=== PATIENT | female | born 1970 | race Caucasian/White ===

== ENCOUNTER → 2020-11-21 14:30 | Outpatient (BNVA) | payer OTHER, SELFPAY | PROVIDERS: PCP Nurse Practitioner Family; Visit Provider Urology | DX: N20.0 Calculus of kidney (principal); N39.0 Urinary tract infection, site not specified; M54.9 Dorsalgia, unspecified | CPT/HCPCS: 81002 ==

== ENCOUNTER → 2020-11-28 14:47 | Outpatient (BNVA) | payer OTHER, SELFPAY | PROVIDERS: PCP Nurse Practitioner Family; Visit Provider Urology ==

== ENCOUNTER 2021-02-15 10:33 | Outpatient (REF) | payer OTHER, SELFPAY ==
[2021-02-15 14:44] LABS: Glucose Urine UA NEG (NEG); Leukocyte Esterase Urine 3+ (NEG); Nitrite Urine POS (NEG); Specific Gravity - Urine <= 1.005 (1.005-1.025); Urine Blood 3+ (NEG); Urine Ketones NEG (NEG); Urine Protein TRACE MG/DL (NEG-TRACE)
[2021-02-15 14:48] LABS: Appearance Urine HAZY; Color Urine YELLOW
[2021-02-15 15:24] LABS: Bacteria Urine 2+ /LPF; WBC Urine TNTC /HPF (0-4)
== END 2021-02-15 10:34 | disposition home or self-care (01) ==
LOC: HO.10HDL 10:33
PROVIDERS: Absent Provider Internal Medicine Hypertension Specialist; Visit Provider Urology
DX: N39.0 Urinary tract infection, site not specified (principal); N20.0 Calculus of kidney
CPT/HCPCS: 81001; 87086; 87088; 87186

== ENCOUNTER → 2021-05-23 10:05 | Outpatient (BNVA) | payer OTHER, SELFPAY | PROVIDERS: Visit Provider Internal Medicine Cardiovascular Disease | DX: R07.89 Other chest pain (principal); R00.2 Palpitations; G47.10 Hypersomnia, unspecified; I10 Essential (primary) hypertension | CPT/HCPCS: 93005 ==

== ENCOUNTER → 2021-06-11 11:08 | Outpatient (REF) | payer OTHER, SELFPAY ==
--- NOTE | 2021-06-11 11:11 | HM_ITS ---
TEST PERFORMED: Cardiac event monitoring. INDICATION: Palpitations. REQUESTING PHYSICIAN: César Wilson MD. ENROLLMENT PERIOD: 06/11/2021 to 07/11/2021-30 days. FINDINGS: In the above monitoring period, the underlying rhythm was sinus. The rates were on the tachycardic side, beat being 103 beats per minute to 129 beats per minute. However, there were no other arrhythmias noted during this time. There were no specific patient symptoms as well. CONCLUSION: Study shows sinus tachycardia during the entire monitoring but no other arrhythmias. Mg Dominguez MD HS/MODL / [id number]
== END ==
LOC: HO.CARD 11:08
PROVIDERS: Visit Provider Internal Medicine Cardiovascular Disease
DX: R00.2 Palpitations (principal)
CPT/HCPCS: 93270

== ENCOUNTER → 2021-07-03 11:04 | Outpatient (REF) | payer OTHER, SELFPAY ==
--- NOTE | 2021-07-03 11:14 | CA_ITS ---
Acquisition Time: 2021-07-03 11:09:05 Total Exercise Time: 00:05:01 Test Indications: CP,SOB Medications: SEE CHART Protocol: ROSEANNA Max HR: 181 BPM 107% of Pred: 168 BPM Max BP: 164/070 mmHG Max Work Load: 7.0 METS Exercise stress test with exercise 5 min 1 sec of roseanna protocol, with moderate shortness of breath, 4-5/10 chest tightness at baseline which did not change with exercise or in recovery, with rare isolated PVC, with normotensive response to exercise, without EKG changes meeting criteria for ischemia. Echo images obtained at rest and immediately post peak exercise. Definity contrast used. Test reviewed with Dr Wilson Referred By: César Wilson Overread By: NICOLETTE BOSS
== END ==
LOC: HO.CARD 11:04
PROVIDERS: Visit Provider Internal Medicine Cardiovascular Disease
DX: R07.89 Other chest pain (principal)
CPT/HCPCS: 93350

== ENCOUNTER 2022-10-08 15:25 | Outpatient (REF) | payer OTHER, SELFPAY ==
--- NOTE | ~2022-10-08 | XR_ITS ---
EXAMINATION: XR SINUSES CLINICAL INFORMATION: Sinusitis COMPARISON: None TECHNIQUE: 3 views of the sinuses were obtained. FINDINGS: Mild mucoperiosteal thickening left maxillary sinus. There may be minimal mucoperiosteal thickening left frontal sinus. Nasal septum midline. The right frontal and maxillary sinuses appear clear. Orbital rims intact. XR/XR sinus min 3V IMPRESSION: Mild areas of mucoperiosteal thickening noted.
== END 2022-10-08 15:26 | disposition home or self-care (01) ==
LOC: HO.XRAY 15:25
PROVIDERS: PCP Physician Assistant Medical; Visit Provider Otolaryngology
DX: J32.9 Chronic sinusitis, unspecified (principal)
CPT/HCPCS: 70220

== ENCOUNTER 2023-08-22 11:41 | Outpatient (REF) | payer OTHER, SELFPAY | END 2023-08-22 11:42 | disposition home or self-care (01) | LOC: HO.MAMMO 11:41 | PROVIDERS: Visit Provider Physician Assistant Medical | DX: Z12.31 Encounter for screening mammogram for malignant neoplasm of breast (principal) | CPT/HCPCS: 77063; 77067 ==

== ENCOUNTER → 2023-08-22 11:45 | Outpatient (BNV) | payer OTHER, SELFPAY | PROVIDERS: Visit Provider Radiology Diagnostic Radiology | DX: Z12.31 Encounter for screening mammogram for malignant neoplasm of breast (principal) | CPT/HCPCS: 77063; 77067 ==

== ENCOUNTER 2024-08-24 16:11 | Outpatient (REF) | payer OTHER, SELFPAY ==
--- NOTE | ~2024-08-24 | MM_ITS ---
EXAMINATION: MM SCREENING DIGITAL BREAST TOMOSYNTHESIS, BILATERAL CLINICAL INFORMATION: Screening. Asymptomatic. COMPARISON: Mammography: Comparison is made with available priors TECHNIQUE: Digital breast mammography with tomosynthesis is performed in both the craniocaudal and mediolateral oblique views along with computer-aided detection (CAD). FINDINGS: There are scattered areas of fibroglandular density (ACR BI-RADS breast composition Category b). There are no significant masses, abnormal calcifications, or other abnormalities. MM/MM tomosynthesis screening BI IMPRESSION: No mammographic evidence of malignancy. ASSESSMENT: BI-RADS BI-RADS 1 - Negative RECOMMENDATION: Routine annual mammography screening. 1 year F/U This examination should not preclude the clinical evaluation of a suspicious palpable abnormality. This patient's information was entered into a reminder system with a target due date for their next mammogram. Electronically signed by: Manuela Lynch DO 09/06/2024 05:22 PM EDT
== END 2024-08-24 16:12 | disposition home or self-care (01) ==
LOC: HO.MAMMO 16:11
PROVIDERS: PCP Physician Assistant Medical; Visit Provider Physician Assistant Medical
DX: Z12.31 Encounter for screening mammogram for malignant neoplasm of breast (principal)
CPT/HCPCS: 77063; 77067

== ENCOUNTER → 2024-08-24 16:30 | Outpatient (BNV) | payer OTHER, SELFPAY | PROVIDERS: PCP Physician Assistant Medical; Visit Provider Internal Medicine | DX: Z12.31 Encounter for screening mammogram for malignant neoplasm of breast (principal) | CPT/HCPCS: 77063; 77067 ==

== ENCOUNTER 2025-02-27 15:04 | Observation (INO) | payer OTHER, SELFPAY ==
--- NOTE | ~2025-02-27 | US_ITS ---
CLINICAL HISTORY: right sided headach, Abnormal CT head US Bilateral Carotid Duplex Comparison: CT/SR - CT HEAD/BRAIN WO IV CON - 02/27/25 17:50 EDT Findings: No significant plaque within the common carotid arteries. No significant plaque within the carotid bulbs. Color doppler and spectral tracings normal. Peak systolic velocities: Right CCA: 150 cm/s. Right ICA: 83 cm/s. ICA/CCA ratio: 0.5. Right ECA: Unremarkable. Right vertebral artery flow antegrade. Left CCA: 170 cm/s. Left ICA: 95 cm/s. ICA/CCA ratio: 0.4. Left ECA: Unremarkable. Left vertebral artery flow antegrade. 1.7 x 1 x 1.2 cm left lobe thyroid nodule. IMPRESSION: Normal carotid velocities, no significant stenosis (0-49% stenosis). Indeterminate thyroid nodule. Correlation with dedicated US thyroid as indicated. This document has been electronically signed by: Ignacia Red MD on 02/28/2025 15:35:06
--- NOTE | ~2025-02-27 | MR_ITS ---
CLINICAL HISTORY: abnormal CT r o CVA with time of flow --- Additional Notes or Special Instructions: to be done in the AM 4 21 per [place]. MR brain without contrast. COMPARISON: CT head dated 02/27/25 at 17:50 EDT FINDINGS: No abnormal diffusion restriction in the brain parenchyma or extra-axial spaces. No evidence of mass, mass effect or midline shift. No intracranial hemorrhage or abnormal extra-axial fluid collection. No evidence of hydrocephalus. The basilar cisterns are patent. Cerebellar hemispheres and cerebellar vermis are normal. Fourth ventricle is normal. No brainstem abnormality is identified. Intracranial flow voids are patent. The visualized paranasal sinuses and mastoid air-cells are clear. IMPRESSION: 1. No acute intracranial findings. No evidence of acute ischemia, mass or mass effect. This document has been electronically signed by: Landen Sherman MD on 02/28/2025 17:19:46
--- NOTE | ~2025-02-27 | CT_ITS ---
CLINICAL HISTORY: headache CT head without contrast Comparison: None Findings: No intra-axial mass, midline shift, hydrocephalus, or acute hemorrhage. No significant atrophy. Asymmetric relative hypodensity in left hemisphere white matter especially in the parietal, temporal and occipital lobes with poor definition of left basal ganglia. There is no sinus or mastoid fluid. The orbits are within normal limits. There is no acute skull fracture. IMPRESSION: 1. Asymmetric relative hypodensity in left hemisphere white matter especially in the parietal, temporal and occipital lobes with poor definition of left basal ganglia which may represent acute ischemia/infarct. Correlate clinically and if indicated follow-up brain MRI and CT angiography could be obtained. 2. No acute intracranial hemorrhage. This document has been electronically signed by: Cat Moreno MD on 02/27/2025 18:45:58
--- NOTE | ~2025-02-27 | MR_ITS ---
CLINICAL HISTORY: headache, abnormal CT scan MR Angiography head without gadolinium COMPARISON: MR head dated 02/28/25 at 16:[address] head dated 02/27/25 at 17:50 EDT FINDINGS: Widely patent intracranial internal carotid arteries. Vertebrobasilar system intact. Anterior, middle, and posterior cerebral arteries are normal. Visualized cerebellar arteries are patent. IMPRESSION: 1. Normal MRA brain This document has been electronically signed by: Landen Sherman MD on 02/28/2025 17:18:32
[2025-02-27 15:12] VITALS: BP 176/91; PULSE 100; RESP 18; TEMP 36.8; O2SAT 99; BMI 40.2
--- NOTE | 2025-02-27 15:12 | ED.GENADULT ---
HPI - General Adult General Chief complaint: General Medical Stated complaint: dr called pain in right side of face really weak Time Seen by Provider: 02/27/25 15:47 Source: patient, family and old records reviewed Mode of arrival: ambulatory Limitations: no limitations History of Present Illness ED Provider: MIRACLE CHANDRA narrative: 54 yo female with PMH of vertigo, chronic migraines, HTN here with 3 days of dizziness, weakness, headaches did recently travel to [place]. Has R sided pain - hx of similar migraines in the past that have brought her to the ED. She was told to come to ED after states her R ext ear is red. No fevers but she has n/v and feels chills and is very cold. She denies headstrike, fevers. She is not on blood thinners. complaint: migraine Onset (ago): day(s) (3) Location: head Radiation: non-radiation Severity: severe Quality: other (throbbing) Pain Consistency: constant Relieving factors: rest Exacerbating factors: movement Associated symptoms: fever/chills, headaches and nausea/vomiting Treatments prior to arrival: other Related Data Home Medications ?Medication ?Instructions ?Recorded ?Confirmed amlodipine 5 mg tablet 5 mg PO DAILY 05/23/21 05/23/21 fexofenadine 60 mg tablet (Elizabeth 60 mg PO BID 05/23/21 05/23/21 Allergy) fluticasone 500 mcg-salmeterol 50 1 ea PO BID 05/23/21 05/23/21 mcg/dose blistr powdr for inhalation Previous Rx's ?Medication ?Instructions ?Recorded tamsulosin 0.4 mg capsule 0.4 mg PO BEDTIME #30 caps 11/21/20 Allergies Allergy/AdvReac Type Severity Reaction Status Date / Time codeine [Codeine] Allergy Severe ANAPHYLAXIS Verified 02/27/25 15:15 hydrocodone [From Vicodin] Allergy Severe ANAPHYLAXIS Verified 02/27/25 15:15 Iodinated Contrast Media Allergy Severe ANAPHYLAXIS Verified 02/27/25 15:15 [IV Dye, Iodine Containing] metoclopramide Allergy Severe HTN/TACHYCA Verified 02/27/25 15:15 [Metoclopramide] RDIA morphine [Morphine] Allergy Severe ANAPHYLAXIS Verified 02/27/25 15:15 amoxicillin [From AUGMENTIN] Allergy Intermediate DIZZY, Verified 02/27/25 15:15 NAUSEA, VOMITING aspirin [Aspirin] Allergy Intermediate VOMITING/DI Verified 02/27/25 15:15 ZZY ciprofloxacin [From CIPRO] Allergy Intermediate VOMITING, Verified 02/27/25 15:15 DIZZY clavulanic acid Allergy Intermediate DIZZY, Verified 02/27/25 15:15 [From AUGMENTIN] NAUSEA, VOMITING ketorolac [From TORADOL] Allergy Intermediate ALLERGIC Verified 02/27/25 15:15 RASH AND HIVES sumatriptan [From IMITREX] Allergy Intermediate SWELLING, Verified 02/27/25 15:15 DIFFICULTY BREATHING acetaminophen [From TYLENOL] Allergy Mild UNKNOWN Verified 02/27/25 15:15 adhesive tape [Adhesive Tape] Allergy Mild RASH Verified 02/27/25 15:15 caffeine Allergy Unknown unknown Verified 02/27/25 15:15 [Excedrin Extra Strength] hydromorphone [Dilaudid] Allergy Unknown unknown Verified 02/27/25 15:15 naproxen Allergy Unknown unknown Verified 02/27/25 15:15 nitrofurantoin [Macrobid] Allergy Unknown unknown Verified 02/27/25 15:15 oxycodone [Percocet] Allergy Unknown unknown Verified 02/27/25 15:15 penicillin V Allergy Unknown unknown Verified 02/27/25 15:15 prednisolone Allergy Unknown unknown Verified 02/27/25 15:15 prednisone [PREDNISONE] Allergy Unknown ITCHING, Verified 02/27/25 15:15 NAUSEA Codeine Phosphate Allergy Unknown Unknown Uncoded 11/28/20 14:47 Codeine Sulfate Allergy Unknown unknown Uncoded 11/28/20 14:47 From Percocet Allergy Unknown ANAPHYLAXIS Uncoded 11/28/20 14:47 Surgical Dressing Allergy Unknown unknown Uncoded 11/28/20 14:47 Vicodin Allergy Unknown unknown Uncoded 11/28/20 14:47 Review of Systems Review of Systems: Constitutional : No Fever, pos Chills, No Fatigue ENT/Mouth : No sore throat, No Rhinorrhea Eyes: No Eye Pain, No Swelling, No Redness, pos ear pain Cardiovascular : No Chest Pain, No SOB, No Dyspnea on Exertion Respiratory : No Cough, No Sputum Gastrointestinal : pos Nausea, pos Vomiting, No Diarrhea, No abdominal Pain Genitourinary : No Dysuria, No Urinary Frequency, No Hematuria, Musculoskeletal : No joint pain, No Myalgias, No Joint Swelling Skin : No Skin Lesions, No rash Neuro : No Weakness, No Numbness, No Dizziness, positive Headache All other systems reviewed and are negative [facility] Past Medical History Attestation statement: The following information was validated with the patient. Source: old records reviewed Medical History HTN (hypertension) Fibromyalgia GERD (gastroesophageal reflux disease) Vertigo Asthma Bladder spasms Renal stones Hydronephrosis with urinary obstruction due to ureteral calculus History of nephrolithiasis Family History Family History Father History of kidney stones Mother No problems noted. Daughter History of kidney stones Social History Social History Alcohol intake: never Smoked in Last 30 Days: No Use of substances other than those prescribed or required for medical reasons: No Advance Directives: No Advance Directives Information Provided: No Patient : No Physical Exam ED Vital Signs: Vital Signs - 24 hr 02/27/25 15:12 02/27/25 18:55 02/27/25 19:27 Temperature 98.3 F 98.2 F Pulse Rate 100 115 H Respiratory Rate 18 16 Blood Pressure 176/91 H 187/92 H 187/92 H Pulse Oximetry 99 98 Oxygen Delivery Method Room Air BMI result Body Mass Index 40.2 Appearance: Alert. Oriented X3. No acute distress. Eyes: Pupils equal, round and reactive to light. ENT: Pharynx normal. R ext ear normal - slight red focal area but no swelling to R ext pinna, mastoid normal, canal normal, TM normal Neck: Normal inspection. Neck supple. CVS: Normal heart rate and rhythm. Pulses normal. Respiratory: No respiratory distress. Breath sounds normal. Abdomen: Soft and nontender. Skin: Skin warm and dry. Normal skin color. Normal skin turgor. Extremities: No lower extremity edema. No calf ttp Neuro: Oriented X 3. No motor deficit. No sensory deficit. CN2-12 intact NIH Stroke Scale Internal: Initial- Upon Arrival Level of Consciousness: Alert Level of Consciousness Questions: Answers both questions correctly Level of Consciousness Commands: Performs both tasks correctly Best Gaze: Normal Visual: No visual loss Facial Palsy: Normal Motor Arm (Right): No drift Motor Arm (Left): No drift Motor Leg (Right): No drift Motor Leg (Left): No drift Limb Ataxia: Absent Sensory: Normal Best Language: No aphasia Dysarthia: Normal Extinction and Inattention: No abnormality Score: 0 Course Course Course Narrative: This is an RME performed by Hector Garrido CNP: Additional HPI, ROS, PE not included below will be deferred to primary provider. Patient is a 54-year-old female who presents emergency department for evaluation. Over the past 3 days she has been experiencing symptoms including dizziness, migraine headache, photophobia. nausea, vomiting, fevers, chills, earache, right-sided facial swelling. Reports that she presented to urgent care and was referred to emergency department for further evaluation, states she was advised that the external ear was swollen but internal ear was not. Plan: Serum labs, viral serologies, EKG Reevaluation(s) Reevaluation #1: PO home amlodipine ordered Reevaluation #2: aspirin allergy it was held Medications Administered Generic Name Dose Route Start Last Admin Trade Name Freq PRN Reason Stop Dose Admin Enoxaparin Sodium 40 mg 02/27/25 23:00 02/27/25 22:47 Enoxaparin Sodium 40 Mg/0.4 Ml Syringe SUBCUT 40 mg Q24H HOWARD Administration Discontinued Medications Generic Name Dose Route Start Last Admin Trade Name Freq PRN Reason Stop Dose Admin Amlodipine Besylate 5 mg 02/27/25 19:09 02/27/25 19:27 Amlodipine Besylate 5 Mg Tablet PO 02/27/25 19:10 5 mg ONCE ONE Administration Protocol Diphenhydramine HCl 25 mg 02/27/25 16:24 02/27/25 16:41 Diphenhydramine Hcl 50 Mg/Ml Vial IVPUSH 02/27/25 16:25 25 mg ONCE ONE Administration Diphenhydramine HCl 25 mg 02/27/25 18:45 02/27/25 18:50 Diphenhydramine Hcl 50 Mg/Ml Vial IVPUSH 02/27/25 18:46 25 mg ONCE ONE Administration Diphenhydramine HCl 25 mg 02/27/25 22:16 02/27/25 22:46 Diphenhydramine Hcl 50 Mg/Ml Vial IVPUSH 02/27/25 22:17 25 mg ONCE ONE Administration Lactated Ringer's 1,000 mls @ 999 mls/hr 02/27/25 16:23 02/27/25 18:32 Lr IV 02/27/25 17:23 Infused .Q1H1M ONE Infusion Ibuprofen 800 mg 02/27/25 22:16 02/27/25 22:46 Ibuprofen 800 Mg Tablet PO 02/27/25 22:17 800 mg ONCE ONE Administration Ketorolac Tromethamine 15 mg 02/27/25 18:45 02/27/25 19:28 Ketorolac Tromethamine 15 Mg/Ml Vial IVPUSH 02/27/25 18:46 15 mg ONCE ONE Administration Prochlorperazine Edisylate 10 mg 02/27/25 16:23 02/27/25 16:37 Prochlorperazine Edisylate 10 Mg/2 Ml Vial IVPUSH 02/27/25 16:24 10 mg ONCE ONE Administration Medical Decision Making Medical Decision Making [facility] Narrative: 54 yo female with PMH of vertigo, chronic migraines, HTN here c/o R sided headache but then told at urgent care she had a swollen ear - I see no signs of infection at this time she has no fevers and no elevated CRP. She admits to not taking her HTN medications today. At this time will obtain basic labs, CT head for mass/mastoiditis. Treat pain this seems more viral in nature with migraine. No focal deficits. Differential Diagnosis Differential Diagnoses: The differential diagnosis associated with the presentation includes migraine, ear infection, mastoiditis, viral syndrome Admission/Observation Consideration of admission/observation: Escalation of care including admission/observation considered cannot get CTA she is NIH negative with symptoms x 3 days will admit for MRI Consult Healthcare Provider Management of the patient was discussed with: Hospitalist (will admit) Lab Data [facility] Lab Attestation statement: I reviewed the patient's lab results. 02/27/25 15:27 02/27/25 15:27 Labs: Lab Results 02/27/25 02/27/25 Range/Units 15:27 18:14 WBC 11.9 H (4.8-10.8) X10*3/uL RBC 5.35 (4.20-5.50) X10*6/uL Hgb 14.5 (12.0-16.0) g/dl Hct 45.7 (37.0-47.0) % MCV 85.4 (80.0-98.0) fL MCH 27.1 (27.0-33.0) pg MCHC 31.7 (31.0-35.0) g/dl RDW 14.1 (11.0-16.0) % Plt Count 314 (160-400) X10*3/uL MPV 9.9 (9.4-12.3) fL Immature Gran % (Auto) 0.3 (0.0-0.4) % Neut % (Auto) 76.7 H (45-73) % Lymph % (Auto) 16.9 L (20-40) % [place] % (Auto) 5.5 (2-11) % Eos % (Auto) 0.1 (0-4) % Baso % (Auto) 0.5 (0-2) % Lymph # (Auto) 2.0 (1.2-4.9) X10*3/uL [place] # (Auto) 0.7 (0.1-1.2) X10*3/uL Eos # (Auto) 0.0 (0.0-0.4) X10*3/uL Baso # (Auto) 0.1 (0.0-0.2) X10*3/uL Abs Immat Gran (auto) 0.04 H (0.00-0.03) X10*3/uL Absolute Neuts (auto) 9.1 H (2.0-8.3) x10*3/uL Absolute Nucleated RBC 0.000 (0.0-0.012) X10*3/uL Nucleated RBC % (auto) 0.0 (0.0-0.2) /100WBC Sodium 140 (135-145) mmol/L Potassium 4.7 (3.3-5.1) mmol/L Chloride 110 H (96-108) mmol/L Carbon Dioxide 20 L (22-29) mmol/L Anion Gap 15 (12-20) BUN 16 (9-16) mg/dL Creatinine 1.21 (0.5-1.4) mg/dL Estim Creat Clear Calc 60.2 Estimated GFR 46 Random Glucose 123 H (60-115) mg/dL Calcium 9.3 (8.4-10.2) mg/dL Magnesium 1.9 (1.6-2.6) mg/dL Total Bilirubin 0.6 (0.0-1.0) mg/dL Direct Bilirubin 0.2 (0.0-0.5) mg/dL AST 15 (5-31) U/L ALT 9 (0-31) U/L Alkaline Phosphatase 97 (39-117) U/L Troponin I High Sens < 2.7 (<3.5-17.0) ng/L C-Reactive Protein 0.22 (< or = 0.50) mg/dL Total Protein 7.8 (6.5-8.0) g/dL Albumin 4.0 (3.5-5.0) g/dL Beta HCG, Quant 8 mIU/mL Urine Color Yellow Urine Appearance Clear Urine pH 6.5 (5.0-9.0) Ur Specific [place] 1.010 (1.005-1.025) Urine Protein 100 (2+) H (Neg-Trace) mg/dL Urine Glucose (UA) Negative (Negative) mg/dL Urine Ketones Trace (Negative) mg/dL Urine Blood Small (1+) H (Negative) Urine Nitrite Negative (Negative) Ur Leukocyte Esterase Negative (Negative) Urine RBC 0-2 (0-2) /HPF Urine WBC 0-5 (0-5) /HPF Ur Squamous Epith Cells 3-5 (0-2) /HPF Urine Bacteria None Seen (None Seen) Hyaline Casts 0-2 (0-2) /LPF Influenza Type A (PCR) NEGATIVE (Negative) Influenza Type B (PCR) NEGATIVE (Negative) RSV RNA Qual (PCR) NEGATIVE (Negative) SARS-CoV-2 RNA (RT-PCR) NEGATIVE (Negative) Independent Interpretation I performed an independent interpretation of an: EKG and CT Scan (abnormal ) Interpretation: Rate: 92 Rhythm: NSR [place]: left, LVH Normal P waves. Normal AL. Normal QRS complex. ST T wave : normal no CARLA qTC: 447 prior studies: no acute ischemia The study has been interpreted contemporaneously by me. . Radiology Impression Discussion of test interpretation with radiology: I discussed test interpretation with the radiologist and I have reviewed the radiologist's reading. Independent Historian Clinical information obtained from an independent historian. History obtained from or confirmed by: Spouse External Record Review External record reviewed: Inpatient record and Outpatient record Critical Care Time Critical Care Time Critical Care Time: Yes Total Critical Care Time: 45 Attestation: stroke work up, admission, review of records, repeat IV medications for pain I attest to this time spent taking care of the patient Discharge Plan Discharge Clinical Impression: Dizziness HTN (hypertension) Qualifiers: Hypertension type: unspecified Qualified Code(s): I10 - Essential (primary) hypertension Acute headache Qualifiers: Headache type: unspecified Intractability: intractable Qualified Code(s): R51.9 - Headache, unspecified Patient Disposition: Admitted As Inpatient
--- NOTE | 2025-02-27 15:14 | ECG_ITS ---
Test Reason : dizziness Blood Pressure : */* mmHG Vent. Rate : 92 BPM Atrial Rate : 92 BPM P-R Int : 136 ms QRS Dur : 90 ms QT Int : 362 ms P-R-T Axes : 38 3 55 degrees QTcB Int : 447 ms Normal sinus rhythm Normal ECG When compared with ECG of 14-May-2019 20:42, No significant change was found Referred By: Rosa Garrido Electronically Signed By: CRAMEN TEJEDA
[2025-02-27 15:34] LABS: MANUAL DIFF FLAG NO
--- OUTSIDE RECORDS SUMMARY | 2025-02-27 15:35 | XMS_ITS | Referral Summary ---
Author Organization [facility] Address [address] [place] [address] Care Team Providers Care School Manager Name Role Phone Ana Cullen Primary Care Provider Allergies Active Allergy Reactions Criticality Noted Date Comments Adhesive Tape-Silicones Rash 06/27/2022 Aspirin Hives 06/27/2022 Amoxicillin-Pot Clavulanate Anaphylaxis High 022 Ciprofloxacin Anaphylaxis High 06/27/2022 Codeine Anaphylaxis High 06/27/2022 Hydromorphone Rash 06/27/2022 Doxycycline Hives 06/27/2022 Sumatriptan Hives 06/27/2022 Iodine Hives 06/27/2022 Morphine Anaphylaxis High 06/27/2022 Penicillins Hives 06/27/2022 Oxycodone-Acetaminophen Hives 06/27/2022 Prednisone Hives 06/27/2022 Metoclopramide Hcl Hives 06/27/2022 Acetaminophen Rash 06/27/2022 Hydrocodone-Acetaminophen Anaphylaxis High 2 Medications omeprazole (PriLOSEC) 20 mg capsule Take 20 mg by mouth once a day. Active amLODIPine (NORVASC) 5 mg tablet Take 5 mg by mouth once a day. Active multivitamin capsule Take 1 capsule by mouth once a day. Active fluticasone propion-salmete roL (ADVAIR DISKUS) 500-50 mcg inhaler Inhale 1 puff by mouth 2 times a day. Rinse mouth with water after use. Do not swallow. Active albuterol 2.5 mg/3 mL (0.083%) nebulizer solution Inhale 1 vial via nebulizer every 6 hours as needed for wheezing or shortness of breath. Active bacillus coagulans-inuli n (Probiotic Formula, inulin,) 1 billion-250 cell-mg capsule Take 1 capsule by mouth once a day. Active ascorbic acid (VITAMIN C) 500 mg tablet Take 500 mg by mouth once a day. Active Vitamin D3 25 mcg (1,000 unit) capsule Take 1 capsule by mouth once a day. Active zinc sulfate (Zinc-220) 50 mg zinc (220 mg) capsule Take by mouth once a day. Active tamsulosin (FLOMAX) 0.4 mg capsule Take 1 capsule (0.4 mg total) by mouth once a day. 30 capsule Active Social History Tobacco Use Types Packs/Day Years Used Date Smoking Tobacco: Never Assessed Comments Unknown Sex and Gender Information Value Date Recorded Sex Assigned at Not on file Legal Sex Female 10:55 AM EDT Gender Identity Not on file Sexual Orientation Not on file Last Filed Vital Signs Vital Sign Reading Time Taken Comments Blood Pressure 144/84 06/27/2022 1:58 PM EDT Pulse 98 06/27/2022 1:58 PM EDT Temperature - - Respiratory Rate - - Oxygen Saturation - - Inhaled Oxygen Concentration - - Weight - - Height - - Body Mass Index - - Plan of Treatment Not on file Insurance [employer] Care Teams School Manager Relationship Specialty Start Date End Date Ana Cullen PCP - General Internal Medicine 02/19/22
--- OUTSIDE RECORDS SUMMARY | 2025-02-27 15:35 | XMS_ITS | Data Portability ---
Author Organization [facility], [address] Address [address] [place] [address] Care Team Providers Care Clinical Assistant Name Role Phone QUETA KATZ Primary Care Provider [phone] Assessment No assessment recorded. Plan of Treatment Reminders Order Date Submit Date Provider Last Modified By Organization Details Last Modified Time Details Appointments None recorded. Lab urinalysis , dipstick 2022 023 [email or web address] [facility], [address] [place] [address], [id number], 3 17:21:58 test, urine 2022 023 [email or web address] _[facility], [address] [place] [address], [address], 3 17:21:58 culture, urine 2022 023 [facility] [address] [place] [address], [address], 3 10:16:17 culture, urine 2022 023 [facility], [address] [place] [address], [address], 3 08:07:09 Referral None recorded. Procedures None recorded. Surgeries None recorded. Imaging None recorded. Medication Orders Macrobid 100 mg capsule 2022 023 [facility] #[id number], [phone] [place], [address], 17:22:00 Patient TargetsNo targets recorded. Patient InstructionsNo instructions recorded. Reason for Referral None Reported. Results Created Date Observation Date Name Description Value Unit Range Abnormal Flag Note LastModifiedBy Organization Detail LastModifiedTime 11/23/1911/26/2022 URINE CULTU RE, ROUTI NE urine culture, routine FINAL REPORT Not Available [facility] ([facility]) [address] [facility], [place], [address], 11/26/2022 08:07:08 11/23/1911/26/2022 URINE CULTU RE, ROUTI NE result 1 NO GROWTH Not Available [facility] ([facility]) [address] [facility], [place], [address], 11/26/2022 08:07:08 11/23/1911/23/2022 pregn lida test, urine Unknown Analyte Normal = Negati ve Not Available [address], [address], 11/23/2022 16:49:39 11/23/1911/23/2022 pregn lida test, urine Unknown Analyte negati ve Not Available [address] [place] [address], [address], 11/23/2022 16:49:39 11/23/19 23 11/23/2022 urina lysis , dipst ick Unknown Analyte Normal = light yellow Not Available [address], [address], 11/23/2022 16:49:05 11/23/19 23 11/23/2022 urina lysis , dipst ick Unknown Analyte Yellow Not Available [address] [place] [address], [address], 11/23/2022 16:49:05 11/23/19 23 11/23/2022 urina lysis , dipst ick Unknown Analyte Normal = clear Not Available 2099kiana ojeda [address], [place], [address], 11/23/2022 16:49:05 11/23/19 23 11/23/2022 urina lysis , dipst ick Unknown Analyte Clear Not Available [address], [place], [address], 11/23/2022 16:49:05 11/23/19 23 11/23/2022 urina lysis , dipst ick Unknown Analyte Normal = negati ve Not Available 2099kiana ojeda [address], [place], [address], 11/23/2022 16:49:05 11/23/19 23 11/23/2022 urina lysis , dipst ick Unknown Analyte Negati ve Not Available kiana ojeda [address], [place], [address], 11/23/2022 16:49:05 11/23/19 23 11/23/2022 urina lysis , dipst ick Unknown Analyte Normal = Negati ve Not Available kiana ojeda [address], [place], [address], 11/23/2022 16:49:05 11/23/19 23 11/23/2022 urina lysis , dipst ick Unknown Analyte Negati ve Not Available 2099kiana ojeda [address], [place], [address], 11/23/2022 16:49:05 11/23/19 23 11/23/2022 urina lysis , dipst ick Unknown Analyte Normal = Negati ve Not Available 2099kiana ojeda [address], [place], [address], 11/23/2022 16:49:05 11/23/19 23 11/23/2022 urina lysis , dipst ick Unknown Analyte Trace Not Available [address] [place] [address], [place], [address], 11/23/2022 16:49:05 11/23/19 23 11/23/2022 urina lysis , dipst ick Unknown Analyte Normal = 1.010, 1.015, 1.020 Not Available [facility] [address], [place], [address], 11/23/2022 16:49:05 11/23/19 23 11/23/2022 urina lysis , dipst ick Unknown Analyte 1.030 Not Available [address] [place] [address], [place], [address], 11/23/2022 16:49:05 11/23/19 23 11/23/2022 urina lysis , dipst ick Unknown Analyte Normal = Negati ve Not Available [facility] [address], [place], [address], 11/23/2022 16:49:05 11/23/19 23 11/23/2022 urina lysis , dipst ick Unknown Analyte Modera te Not Available [address] [place] [address], [place], [address], 11/23/2022 16:49:05 11/23/19 23 11/23/2022 urina lysis , dipst ick Unknown Analyte Normal = 6.5, 7.0, 7.5, 8.0 Not Available [address] [place] [address], [place], [address], 11/23/2022 16:49:05 11/23/19 23 11/23/2022 urina lysis , dipst ick Unknown Analyte 6.0 Not Available [address]_ azeem [address], [place], [address], 11/23/2022 16:49:05 11/23/19 23 11/23/2022 urina lysis , dipst ick Unknown Analyte Normal = Negati ve Not Available kiana ojeda [address], [place], [address], 11/23/2022 16:49:05 11/23/19 23 11/23/2022 urina lysis , dipst ick Unknown Analyte 300 mg/dL Not Available kiana ojeda [address], [place], [address], 11/23/2022 16:49:05 11/23/19 23 11/23/2022 urina lysis , dipst ick Unknown Analyte Normal = 0.2, 1.0 Not Available kiana ojeda [address], [place], [address], 11/23/2022 16:49:05 11/23/19 23 11/23/2022 urina lysis , dipst ick Unknown Analyte 0.2 E.U./d L Not Available kiana ojeda [address], [place], [address], 11/23/2022 16:49:05 11/23/19 23 11/23/2022 urina lysis , dipst ick Unknown Analyte Normal = Negati ve Not Available kiana ojeda [address], [place], [address], 11/23/2022 16:49:05 11/23/19 23 11/23/2022 urina lysis , dipst ick Unknown Analyte Negati ve Not Available kiana ojeda [address], [place], [address], 11/23/2022 16:49:05 11/23/19 23 11/23/2022 urina lysis , dipst ick Unknown Analyte Normal = Negati ve Not Available 2099kiana ojeda [address], [address], 11/23/2022 16:49:05 11/23/19 23 11/23/2022 urina lysis , dipst ick Unknown Analyte Negati ve Not Available 2099kiana ojeda [address], [address], 11/23/2022 16:49:05 Result Notes None recorded. Problems Name Problem SNOMED Code Status Onset Date Resolution Date Notes Provider Name and Address Organization Details Recorded Time Pericarditis 4717525 Active CAMILLA LEWIS-RIVE RA null, PA - [facility] 3 17:06:07 Pleurisy 758356320 Active CAMILLA LEWSI-RIVE RA null, PA - [facility] 3 17:06:22 Vertigo 007808328 Active CAMILLA LEWIS-RIVE RA null, PA - [facility] 3 17:06:46 Migraine 00624879 Active CAMILLA LEWIS-RIVE RA null, PA - [facility] 3 17:06:54 Asthma 118204991 Active CAMILLA LEWIS-RIVE RA null, PA - [facility] 3 17:07:06 Hypertensive disorder 26802924 Active CAMILLA LEWIS-RIVE RA null, PA - [facility] 3 17:07:16 Calculus of kidney and ureter 846990266 Active CAMILLA LEWIS-RIVE RA null, PA - [facility] 3 17:07:38 Problem Notes None recorded. Procedures Surgical History Date Name Laterality Status Provider Name and Address Organization Details Recorded Time Partial hysterectomy completed CAMILLA LEWIS-CASTELAN PA - [facility] 11/23/2022 17:09:07 nephroscopic lithotripsy of renal calculus completed CAMILLAKAI LEWIS-CASTELAN PA - [facility] 11/23/2022 17:10:39 Imaging Results None recorded. Procedure Notes None recorded. Medical Equipment None Reported. Allergies Allergen ID Allergen Name Allergen Category Reaction Reaction Severity Criticality Documentation Date Start Date Code Code System Note Provider Name and Address Organization Details Recorded Time 998608 codeine medicatio n Not available Not available Not available 11/23/2022 2670 RxNorm CAMILLA LEWIS-RIVE RA null, PA - [facility] 3 17:00:40 965963 acetamino phen / hydrocodo ne medicatio n Not available Not available Not available 11/23/2022 22546 2 RxNorm CAMILLA LEWIS-RIVE RA null, PA - [facility] 3 17:00:45 430742 morphine medicatio n Not available Not available Not available 11/23/2022 7052 RxNorm CAMILLA LEWIS-RIVE RA null, PA - [facility] 3 17:00:51 526627 Reglan medicatio n Not available Not available Not available 11/23/2022 9230 RxNorm CAMILLA LEWIS-RIVE RA null, PA - [facility] 3 17:00:56 482544 prednison e medicatio n Not available Not available Not available 11/23/2022 8640 RxNorm CAMILLA LEWIS-RIVE RA null, PA - [facility] 3 17:01:14 925446 ciproflox acin medicatio n Not available Not available Not available 11/23/2022 2551 RxNorm CAMILLA LEWIS-RIVE RA null, PA - [facility] 3 17:01:22 462433 Augmentin medicatio n Not available Not available Not available 11/23/2022 55988 2 RxNorm CAMILLA LEWIS-RIVE RA null, PA - [facility] 3 17:01:28 292626 Tylenol medicatio n Not available Not available Not available 11/23/2022 30879 3 RxNorm CAMILLA LEWIS-RIVE RA null, PA - [facility] 3 17:01:37 671379 acetamino phen / oxycodone medicatio n Not available Not available Not available 11/23/2022 54615 3 RxNorm CAMILLA LEWIS-RIVE RA null, PA - [facility] 3 17:01:45 805721 doxycycli ne Not available Not available Not available Not available 11/23/2022 3640 RxNorm CAMILLA TALBOT RA null, PA - [facility] 3 17:01:54 977601 adhesive tape environme nt,medica tion Not available Not available Not available 11/23/2022 44011 UNK CAMILLA TALBOT RA null, PA - [facility] 3 17:02:12 022510 Iodinated contrast media (substanc e) medicatio n Not available Not available Not available 11/23/2022 55536 2004 SNOMED CAMILLA TALBOT RA null, PA - [facility] 3 17:02:48 Medications Name Sig Start Date Stop Date Status Note LastModified by Organization Details LastModified Time amoxicillin 500 mg capsule 11/23 completed Not Available Not Available Not Available nystatin 100,000 unit/mL oral suspension 11/23 completed Not Available Not Available Not Available ipratropium 0.5 mg-albutero l 3 mg (2.5 mg base)/3 mL nebulizatio n soln active Not Available Not Available Not Available azithromyci n 250 mg tablet 11/23 completed Not Available Not Available Not Available fosfomycin tromethamin e 3 gram oral packet MIX DIRECTED 1 PACKET AND DRINK EVERY 72 HOURS FOR 2 DOSES 11/23 completed Not Available Not Available Not Available ibuprofen 800 mg tablet active Not Available Not Available Not Available amlodipine 5 mg tablet active Not Available Not Available Not Available sulfamethox azole 800 mg-trimetho prim 160 mg tablet 11/23 completed Not Available Not Available Not Available tamsulosin 0.4 mg capsule 2022 active Not Available Not Available Not Avai lable hydrocortis one-acetic acid 1 %-2 % ear drops 11/23 completed Not Available Not Available Not Available phenazopyri dine 100 mg tablet active Not Available Not Available Not Available benzonatate 100 mg capsule 2022 active Not Available Not Available Not Avai lable dexamethaso ne 4 mg tablet active Not Available Not Available Not Available montelukast 10 mg tablet active Not Available Not Available Not Available ibuprofen 600 mg tablet 11/23 completed Not Available Not Available Not Available cefuroxime axetil 500 mg tablet 11/23 completed Not Available Not Available Not Available nabumetone 500 mg tablet 11/23 completed Not Available Not Available Not Available nitrofurant oin monohydrate /macrocryst als 100 mg capsule Take 1 capsule every 12 hours by oral route with meals for 7 days. active Not Available Not Available No t Available Vitamin C active Not Available Not Krys ilable Not Available zinc active Not Available Not Availa ble Not Available omeprazole active Not Available Not Av ailable Not Available albuterol sulfate active Not Available Not Available Not Available Vitamin D3 active Not Available Not Av ailable Not Available Wixela Inhub 500 mcg-50 mcg/dose powder for inhalation 11/23 completed Not Available Not Available Not Available Paxlovid 150 mg-100 mg tablets in a dose pack (Moderate Renal Dose) 11/23 completed Not Available Not Available Not Available Vitals Date Recorded Body height Body mass index (BMI) Body weight Respiratory rate Pain severity - 0-10 verbal numeric rating [Score] - Reported Oxygen saturation Oxygen saturation in Arterial blood by Pulse oximetry Heart rate Body temperature Systolic blood pressure Diastolic blood pressure Provider Name and Address Organization Details Last Updated DateTime 160.02 cm 28.3 kg/m2 19309.7 8 g 18 /min 7 100 % 100 % 104 /min 97.3 [degF] 132 mm[Hg] 81 mm[Hg] CAMILLA TALBOT RA PA [facility] 17:12:52 Social History Question Answer Notes LastModified by Organizat ion Details LastModified Time Tobacco Smoking Status Never Smoker CAMILLA crabtree PA - [email or web address] 11/23/2022 17:08:54 What Is Your Level Of Alcohol Consumption? None Information not available 11/23/2022 Have You Had Direct Contact, Or Contact During Intimacy, With Monkeypox Rash, Scabs, Or Body Fluids From A Person With Monkeypox? No Information not available 11/23/2022 Do You Use Any Illicit Or Recreational Drugs? No Information not available 11/23/2022 Have You Recently Traveled Abroad? No Information not available 11/23/2022 Do You Or Have You Ever Used Any Other Forms Of Tobacco Or Nicotine? No Information not available 11/23/2022 Sex: Unknown Functional Status None recorded. Mental Status None recorded. Family History Relationship Description Onset Age of this Age Resolved Age Notes LastModified by Organization Details LastModified Time Unspecified Relation Malignant tumor of breast Not available 17:08:00 Unspecified Relation Heart disease Not available 17:08:08 Unspecified Relation Diabetes mellitus Not available 17:08:17 Unspecified Relation Malignant neoplasm of skin Not available 17:08:26 Medical History No medical history recorded. Gynecological HistoryNo gynecological history recorded. Obstetrics History GPAL:G 0 P 0 0 0 0 Past Encounters Encounter ID Performer Location Encounter Start Date Encounter Closed Date Diagnosis/Indication Diagnosis SNOMED-CT Code Diagnosis ICD10 Code Diagnosis Note [id number] [address] [place] [address] 07/23/2018 18:41:30 07/23/2018 19:41:00 [id number] [address] [address] 08/11/2021 14:31:09 08/11/2021 17:42:21 [id number] [address] [address] 05/27/2019 18:26:54 05/27/2019 19:55:52 [id number] [address] [place] [address] 07/12/2021 14:38:05 07/12/2021 17:47:45 [id number] [place] [address] [facility] [address] [place] [address] 11/23/2022 16:32:21 11/23/2022 17:31:26 Acute urinary tract infection 864107688 N39.0 Signs and Symptoms c/w UTIUA c/w UTIRx Antibiotic Take your antibiotic with food. Eat a yogurt daily or take a probiotic while you are taking the antibiotic . recommend push fluids, water, cranberry juiceavoid holding urinepract ice postcoital urination UCx pending - reviewed pt phone # and will call prn need to change ABx depending on UCX result Patient advised to follow up as needed for worsening symptoms or no improvemen t. Discussed concerning red flags with patient and reasons to follow up in the Emergency Department urgently. Health Concerns Section Related Observation LastModified by Organization Detai ls LastModified Time None Recorded Concern Status LastModified by Organization Details LastModified Time None Recorded Advance Directives Directive None Recorded Payers Encounter Date Sequence Insurance Name Policy Number Policy Lubin Covered Member ID Lubin Member ID Guarantor Name 05/27/2019 1 [facility] [id number] Lupe Rodriguez [id number] 1 Lupe Gonzales 07/12/2021 1 [facility] [id number] Lupe Jennifer [id number] 1 Lupe Christian 08/11/2021 1 [facility] [id number] Lupe Jennifer [id number] 1 Lupe Christian 11/23/2022 1 [employer] (MEDICARE REPLACEMENT/A DVANTAGE - HMO) [id number] Lupe Christian [id number] Lupe Christian Notes Date Note Type Note Provider Name and Address Organization Details Recorded Time 11/23/2022 text/html Urinary Complain t FemaleReported bypatient.Notes:c/o dysuria x 1 week+ increased frequency and urgency+ suprapubic painno incontinenceno pressureno malodorno blood in her urineno back painno rashno feverno nausea or vomitingno MS change Sanchez Rhoades, DO [address] [place], [address], PA - [facility] 11/23/2022 17:35:42 OBGyn Episode No OBEpisode recorded.
--- OUTSIDE RECORDS SUMMARY | 2025-02-27 15:35 | XMS_ITS | Clinical Summary ---
Author Organization [facility], Address [address] [place] [address] [place] [address] Phone Care Team Providers Care Park Interpretive Specialist Name Role Phone Ana Cullen PA-C Primary Care Provider [phone] Social History Tobacco Use Types Packs/Day Years Used Date Smoking Tobacco: Never Assessed Comments Unknown Sex and Gender Information Value Date Recorded Sex Assigned at Not on file Legal Sex Female 11:32 AM EST Gender Identity Not on file Sexual Orientation Not on file Plan of Treatment Health Maintenance Due Date Last Done Comments Breast Cancer Screening 1969 Hepatitis B Vaccine (1 of 3 - 19+ 3-dose series) 05/19 Colorectal Cancer Screening: Annual FOBT 2018 Colorectal Cancer Screening: Colonoscopy 2018 Colorectal Cancer Screening: Sigmoidoscopy 2018 Pneumococcal Vaccine: 50+ Years (1 of 1 - PCV) 019 Influenza Vaccine (Season Ended) 2025 Insurance [facility] Care Teams Park Interpretive Specialist Relationship Specialty Start Date End Date Ana Cullen PA-C [address] [phone] PCP - General Internal Medicine 12/13/22
--- OUTSIDE RECORDS SUMMARY | 2025-02-27 15:35 | XMS_ITS | Clinical Summary ---
Author Organization [facility] Address [address] [place] [address] Care Team Providers Care Fire Prevention Specialist Name Role Phone Ana Cullen Primary Care Provider [phone] Allergies Active Allergy Reactions Criticality Noted Date [...] Mass Index - - Plan of Treatment Health Maintenance Due Date Last Done Comments Cervical Cancer Screening 1969 Cologuard 1969 Colon Cancer Screening 1969 Colonoscopy 1969 FOBT / Fit Test 1969 HIV Screening 1969 HPV and Pap Smear 1969 Hepatitis C Screening 1969 Pap Smear 1969 Sigmoidoscopy 1969 Hepatitis B Vaccines (1 of 3 - 19+ 3-dose series) 05/10 Pneumococcal Vaccine: 50+ Years (1 of 2 - PCV) 988 Mammogram 2009 Zoster Vaccines (1 of 2) 2019 Alcohol/Substance Use Screening 11/10/2024 Depression Screening and Follow-Up 11/10/2024 Social Drivers of Health Annual Screening 11/10/2024 Influenza Vaccine (Season Ended) 2025 DTaP,Tdap,and Td Vaccines (2 - Td or Tdap) 08/24/2028 08/24/2018 RSV Vaccine (60+ years old a nd patients) (1 - 1-dose 75+ series) 2044 Insurance [employer] Care Teams Fire Prevention Specialist Relationship Specialty Start Date End Date Ana Cullen PCP - General Internal Medicine 02/19/22
[2025-02-27 15:36] LABS: Basophils Absolute Auto 0.1 X10*3/uL (0.0-0.2); Basophils Percent Auto 0.5 % (0-2); Eosinophils Percent Auto 0.1 % (0-4); Hematocrit 45.7 % (37.0-47.0); Hemoglobin 14.5 g/dl (12.0-16.0); Imm Gran Abs Auto 0.04 X10*3/uL (0.00-0.03); Imm Gran Pct Auto 0.3 % (0.0-0.4); Lymphocytes Percent Auto 16.9 % (20-40); Mean Corpuscular HGB Conc 31.7 g/dl (31.0-35.0); Mean Corpuscular Hemoglobin 27.1 pg (27.0-33.0); Mean Corpuscular Volume 85.4 fL (80.0-98.0); Mean Platelet Volume 9.9 fL (9.4-12.3); Monocytes Absolute Auto 0.7 X10*3/uL (0.1-1.2); Monocytes Percent Auto 5.5 % (2-11); Neutrophils Absolute Auto 9.1 x10*3/uL (2.0-8.3); Neutrophils Percent Auto 76.7 % (45-73); Platelet Count 314 X10*3/uL (160-400); Red Blood Count 5.35 X10*6/uL (4.20-5.50); Red Cell Distribution Width 14.1 % (11.0-16.0); White Blood Count 11.9 X10*3/uL (4.8-10.8)
[2025-02-27 16:11] LABS: Alanine Aminotransferase 9 U/L (0-31); Anion Gap 15 (12-20); Aspartate Amino Transferase 15 U/L (5-31); Bilirubin Direct 0.2 mg/dL (0.0-0.5); Bilirubin Total 0.6 mg/dL (0.0-1.0); Blood Urea Nitrogen 16 mg/dL (9-16); Calcium 9.3 mg/dL (8.4-10.2); Carbon Dioxide 20 mmol/L (22-29); Chloride 110 mmol/L (96-108); Creatinine Clr Calc Pharmacy 60.2; Estimated Glomerular Filt Rate 46; Glucose Random 123 mg/dL (60-115); Magnesium 1.9 mg/dL (1.6-2.6); Potassium 4.7 mmol/L (3.3-5.1); Sodium 140 mmol/L (135-145); Total Protein 7.8 g/dL (6.5-8.0); Troponin-I High Sensitivity < 2.7 ng/L (<3.5-17.0)
[2025-02-27 16:27] LABS: Influenza A PCR NEGATIVE (Negative); Influenza B PCR NEGATIVE (Negative); Resp Syncy Virus RNA Qual PCR NEGATIVE (Negative); SARS COV2 PCR INHOUSE NEGATIVE (Negative)
[2025-02-27 16:32] LABS: Alkaline Phosphatase 97 U/L (39-117)
[2025-02-27] MEDS: Lactated Ringers 1,000 ML 999 ML IV (16:37)
[2025-02-27] MEDS: Prochlorperazine Edisylate 10 MG/2 ML VIAL IVPUSH (16:37)
[2025-02-27] MEDS: diphenhydrAMINE HCL 50 MG/ML VIAL 25 MG IVPUSH ×3 (16:41→22:46)
[2025-02-27 17:01] LABS: C Reactive Protein 0.22 mg/dL (< or = 0.50)
[2025-02-27 18:25] LABS: Appearance Urine Clear; Color Urine Yellow; Glucose Urine UA Negative (Negative); Leukocyte Esterase Urine Negative (Negative); Nitrite Urine Negative (Negative); PH 6.5 (5.0-9.0); UMIC TRIGGER UACC YES; Urine Blood Small (1+) (Negative); Urine Ketones Trace mg/dL (Negative); Urine Protein 100 (2+) mg/dL (Neg-Trace)
[2025-02-27 18:26] LABS: HCG Quantitative 8 mIU/mL
[2025-02-27 18:38] LABS: Bacteria Urine None Seen (None Seen); Hyaline Casts Urine 0-2 /LPF (0-2); RBC Urine 0-2 /HPF (0-2); WBC Urine 0-5 /HPF (0-5)
[2025-02-27 18:55] VITALS: BP 187/92; PULSE 115; RESP 16; TEMP 36.8; O2SAT 98
[2025-02-27 19:27] VITALS: BP 187/92
[2025-02-27] MEDS: amLODIPine Besylate 5 MG TABLET PO (19:27)
[2025-02-27] MEDS: Ketorolac Tromethamine 15 MG/ML VIAL IVPUSH (19:28)
--- NOTE | 2025-02-27 19:38 | PC.NURSE ---
Report received from MELISSA Lundberg. Taken over care at this time.
[2025-02-27 20:00] VITALS: PULSE 115; RESP 18
[2025-02-27 20:54] VITALS: BP 125/77; PULSE 110; RESP 18; O2SAT 95
--- NOTE | 2025-02-27 22:05 | PC.NURSE ---
Per MD Carbajal, pt. can eat. No diet order in place at this time.
--- NOTE | 2025-02-27 22:19 | PM.IMHP ---
History of Present Illness Date of Service: 02/27/25 Attending physician on admission: Nelson Carbajal Chief Complaint: ZABALA, weakness Patient is a 54-year-old female with a past medical history significant for HTN, mild persistent asthma, migraines, history DVT (years ago, not on anticoagulant), who presented to the ED due to a headache, dizziness and weakness for the past 3 days. She does report recent trialed [place] and denies any neck pain, fever or sick contacts. Her headache is right-sided and she experiences bilateral eye pressure. She describes it as a 6/10 throbbing pain. This does feel similar to her chronic migraines however she reports that her medication is not helping. She has multiple allergies but can not tolerate some medications with Benadryl. She has also had nausea, vomiting and chills. Chills or new for her with the migraine as she has never had this before. She denies any abdominal pain or diarrhea but is having some urinary frequency. She did not take her blood pressure medication today. She denies any chest pain or shortness of breath. Review of Systems Constitutional: Constitutional: Denies body ache(s), Reports chills, Reports fatigue, Denies fever(s) and Reports headache(s) Eyes: Eyes: Reports blurry vision (bilateral) and Reports photophobia ENT: Reports dizziness, Reports headache(s), Denies nasal congestion, Denies nasal discharge, Denies neck pain and Denies sore throat Cardiovascular: Cardiovascular: Denies chest pain, Denies rapid heart rate, Denies leg edema, Denies lightheadedness and Denies dyspnea Respiratory: Respiratory: Denies chest congestion, Denies cough, Denies dyspnea and Denies wheezing Gastrointestinal: Gastrointestinal: Denies abdominal pain, Denies coffee ground emesis, Denies diarrhea, Reports nausea, Reports vomiting and Denies hematemesis Genitourinary: Genitourinary: Denies hematuria, Denies dysuria and Denies urinary urgency Musculoskeletal: Musculoskeletal: Denies myalgias and Denies neck pain Integumentary/Breasts: Skin/Breast: Denies rash Neurologic: Denies confusion, Reports dizziness, Reports headache(s) and Denies memory loss Psychiatric: Psychiatric: Denies confusion and Denies memory loss Endocrine: Endocrine: Reports fatigue Hematologic/Lymphatic: Hematologic/Lymphatic: Denies easy bleeding and Denies easy bruising Allergic/Immunologic: Allergic/Immunologic: Denies wheezing [facility] Medical History HTN (hypertension) Fibromyalgia GERD (gastroesophageal reflux disease) Vertigo Asthma Bladder spasms Renal stones Hydronephrosis with urinary obstruction due to ureteral calculus History of nephrolithiasis Functional capacity: independent ambulation Family History Father History of kidney stones Mother No problems noted. Daughter History of kidney stones Social History Alcohol intake: never Smoked in Last 30 Days: No Use of substances other than those prescribed or required for medical reasons: No Advance Directives: No Advance Directives Information Provided: No Patient : No Narrative: no smoking, etoh, or drug use Meds Allergies Allergy/AdvReac Type Severity Reaction Status Date / Time codeine [Codeine] Allergy Severe ANAPHYLAXIS Verified 02/27/25 15:15 hydrocodone [From Vicodin] Allergy Severe ANAPHYLAXIS Verified 02/27/25 15:15 Iodinated Contrast Media Allergy Severe ANAPHYLAXIS Verified 02/27/25 15:15 [IV Dye, Iodine Containing] metoclopramide Allergy Severe HTN/TACHYCA Verified 02/27/25 15:15 [Metoclopramide] RDIA morphine [Morphine] Allergy Severe ANAPHYLAXIS Verified 02/27/25 15:15 amoxicillin [From AUGMENTIN] Allergy Intermediate DIZZY, Verified 02/27/25 15:15 NAUSEA, VOMITING aspirin [Aspirin] Allergy Intermediate VOMITING/DI Verified 02/27/25 15:15 ZZY ciprofloxacin [From CIPRO] Allergy Intermediate VOMITING, Verified 02/27/25 15:15 DIZZY clavulanic acid Allergy Intermediate DIZZY, Verified 02/27/25 15:15 [From AUGMENTIN] NAUSEA, VOMITING ketorolac [From TORADOL] Allergy Intermediate ALLERGIC Verified 02/27/25 15:15 RASH AND HIVES sumatriptan [From IMITREX] Allergy Intermediate SWELLING, Verified 02/27/25 15:15 DIFFICULTY BREATHING acetaminophen [From TYLENOL] Allergy Mild UNKNOWN Verified 02/27/25 15:15 adhesive tape [Adhesive Tape] Allergy Mild RASH Verified 02/27/25 15:15 caffeine Allergy Unknown unknown Verified 02/27/25 15:15 [Excedrin Extra Strength] hydromorphone [Dilaudid] Allergy Unknown unknown Verified 02/27/25 15:15 naproxen Allergy Unknown unknown Verified 02/27/25 15:15 nitrofurantoin [Macrobid] Allergy Unknown unknown Verified 02/27/25 15:15 oxycodone [Percocet] Allergy Unknown unknown Verified 02/27/25 15:15 penicillin V Allergy Unknown unknown Verified 02/27/25 15:15 prednisolone Allergy Unknown unknown Verified 02/27/25 15:15 prednisone [PREDNISONE] Allergy Unknown ITCHING, Verified 02/27/25 15:15 NAUSEA Codeine Phosphate Allergy Unknown Unknown Uncoded 11/28/20 14:47 Codeine Sulfate Allergy Unknown unknown Uncoded 11/28/20 14:47 From Percocet Allergy Unknown ANAPHYLAXIS Uncoded 11/28/20 14:47 Surgical Dressing Allergy Unknown unknown Uncoded 11/28/20 14:47 Vicodin Allergy Unknown unknown Uncoded 11/28/20 14:47 Active Medications: Current Medications Diphenhydramine HCl (Diphenhydramine Hcl 50 Mg/Ml Vial) 25 mg IVPUSH ONCE ONE Stop: 02/27/25 22:17 Ibuprofen (Ibuprofen 800 Mg Tablet) 800 mg PO ONCE ONE Stop: 02/27/25 22:17 Home Medications ?Medication ?Instructions ?Recorded ?Confirmed ?Last Taken ?Type amlodipine 5 mg tablet 5 mg PO DAILY 05/23/21 05/23/21 Unknown History fexofenadine 60 mg tablet (Elizabeth 60 mg PO BID 05/23/21 05/23/21 Unknown History Allergy) fluticasone 500 mcg-salmeterol 50 1 ea PO BID 05/23/21 05/23/21 Unknown History mcg/dose blistr powdr for inhalation Physical Exam Vital Signs and Narrative: Vital Signs: Last Vital Signs Temp 98.2 F 02/27/25 18:55 Pulse 110 H 02/27/25 20:54 Resp 18 02/27/25 20:54 BP 125/77 02/27/25 20:54 Pulse Ox 95 02/27/25 20:54 O2 Del Method Room Air 02/27/25 20:54 BMI result Body Mass Index 40.2 General: AOx3, appears uncomfortable Resp: CTA bilaterally CVS: S1, S2, tachy, regular rhythm GI: +BS, NT, no distention Skin: Warm, dry Neuro: PERRL, decreased sensation R face. no facial droop. no uvular and tongue deviation. speech clear. Motor grossly intact bilaterally. strength 5/5 bilateral upper and lower extremities. Extremities: No LE edema Psych: Appropriate affect Const: General: No confusion Orientation/consciousness: No confusion Eyes: Direct Ophthalmoscopy: photophobia Neuro: General: No confusion Results Labs 02/27/25 15:27 02/27/25 15:27 Labs: Laboratory Results - last 24 hr 02/27/25 02/27/25 15: 18:14 MCV 85.4 MCH 27.1 MCHC 31.7 RDW 14.1 Plt Count 314 MPV 9.9 Immature Gran % (Auto) 0.3 Neut % (Auto) 76.7 H Lymph % (Auto) 16.9 L [place] % (Auto) 5.5 Eos % (Auto) 0.1 Baso % (Auto) 0.5 Lymph # (Auto) 2.0 [place] # (Auto) 0.7 Eos # (Auto) 0.0 Baso # (Auto) 0.1 Abs Immat Gran (auto) 0.04 H Absolute Neuts (auto) 9.1 H Absolute Nucleated RBC 0.000 Nucleated RBC % (auto) 0.0 Anion Gap 15 Estim Creat Clear Calc 60.2 Estimated GFR 46 Random Glucose 123 H Calcium 9.3 Magnesium 1.9 Total Bilirubin 0.6 Direct Bilirubin 0.2 AST 15 ALT 9 Alkaline Phosphatase 97 C-Reactive Protein 0.22 Total Protein 7.8 Albumin 4.0 Beta HCG, Quant 8 Urine Color Yellow Urine Appearance Clear Urine pH 6.5 Ur Specific [place] 1.010 Urine Protein 100 (2+) H Urine Glucose (UA) Negative Urine Ketones Trace Urine Blood Small (1+) H Urine Nitrite Negative Ur Leukocyte Esterase Negative Urine RBC 0-2 Urine WBC 0-5 Ur Squamous Epith Cells 3-5 Urine Bacteria None Seen Hyaline Casts 0-2 Influenza Type A (PCR) NEGATIVE Influenza Type B (PCR) NEGATIVE RSV RNA Qual (PCR) NEGATIVE SARS-CoV-2 RNA (RT-PCR) NEGATIVE Assessment and Plan (1) Intractable headache: Status: Acute (2) Dizziness: Status: Acute (3) HTN (hypertension): Qualifiers: Hypertension type: unspecified Qualified Code(s): I10 - Essential (primary) hypertension Status: Acute Plan Patient is a 54-year-old female with a past medical history significant for HTN, mild persistent asthma, migraines, history DVT (years ago, not on anticoagulant), who presented to the ED due to a headache, dizziness and weakness for the past 3 days. Intractable headache, complex migraine vs CVA - head CT with asymmetric relative hypodensity in the left hemisphere white matter especially in the parietal, temporal and occipital lobes with poor definition of left basal ganglia which may represent acute ischemia/infarct. Correlate clinically and if indicated follow-up brain MRI and CT angiography be could be obtained. No acute intracranial hemorrhage - patient with IV contrast allergy, CT angiogram deferred, brain MRI ordered - neuro checks q.2h - neurology consult - patient with multiple allergies, can tolerate some pain medications with Benadryl. No improvement with Toradol - ibuprofen 800 mg with Benadryl now - WBC 11.9, reactive, no infectious symptoms aside from urinary frequency. UA ordered. - if MRI positive for CVA order further workup including echocardiogram - monitor on tele - given 1 L IV fluids in ED - EKG negative - admit for observation Hypertension - patient had not taken BP meds today, given amlodipine 5 mg in ED Obesity - BMI 40.2 - weight loss encouraged Full code VTE prophylaxis: Lovenox Patient with intractable headache, complex migraine versus CVA, admit for observation with further evaluation including MRI and Neurology consult. Quality Stroke Does the patient have a stroke diagnosis?: No VTE Prior VTE?: Yes VTE Risk Level:: Medical - moderate - high VTE Device Contraindication: Treatment Not Indicated VTE Drug Contraindication: N/A - Med Ordered
[2025-02-27] MEDS: Ibuprofen 800 MG TABLET PO (22:46)
[2025-02-27] MEDS: Enoxaparin Sodium 40 MG/0.4 ML SYRINGE SUBCUT (22:47)
[2025-02-27 22:50] VITALS: PULSE 96; RESP 20; O2SAT 98
[2025-02-28] VITALS (10 sets, daily range): BP systolic 118–191; BP diastolic 68–93; PULSE 73–107; RESP 15–20; TEMP 36.1–37.4; O2SAT 94–98; BMI 39.2
[2025-02-28] MEDS: LORazepam 0.5 MG TABLET PO (04:59)
[2025-02-28] MEDS: diphenhydrAMINE HCL 25 MG CAPSULE 50 MG PO (04:59)
[2025-02-28 05:54] LABS: Hematocrit 44.5 % (37.0-47.0); Hemoglobin 14.3 g/dl (12.0-16.0); Mean Corpuscular HGB Conc 32.1 g/dl (31.0-35.0); Mean Corpuscular Hemoglobin 27.1 pg (27.0-33.0); Mean Corpuscular Volume 84.3 fL (80.0-98.0); Platelet Count 270 X10*3/uL (160-400); Red Blood Count 5.28 X10*6/uL (4.20-5.50); Red Cell Distribution Width 14.2 % (11.0-16.0); White Blood Count 9.5 X10*3/uL (4.8-10.8)
[2025-02-28 06:08] LABS: Anion Gap 16 (12-20); Blood Urea Nitrogen 19 mg/dL (9-16); Calcium 8.9 mg/dL (8.4-10.2); Carbon Dioxide 19 mmol/L (22-29); Chloride 111 mmol/L (96-108); Cholesterol 215 mg/dL (<200); Creatinine Clr Calc Pharmacy 58.7; Estimated Glomerular Filt Rate 45; Glucose Random 94 mg/dL (60-115); HDL Cholesterol 46 mg/dL (>40); LDL Cholesterol Calculated 149 mg/dL (<100); Potassium 4.5 mmol/L (3.3-5.1); Sodium 141 mmol/L (135-145); Triglycerides 102 mg/dL (<150)
--- NOTE | 2025-02-28 09:45 | P.CNNE_ITS ---
History of Present Illness Data of Consult Service Date: 02/28/25 Primary Care Provider: GOLD Herrera Reason for consult: Headache 54 years old woman with chronic headaches usually having 3 to 4 times a week. This time it was going on for couple of weeks without any sign of cold or flu- like illness. There was no history of trauma. She was complaining of about 5 or 10 headache on 1 side and also behind the eye pressure type. She was taking [id number] pain medicines for headache treatment and was not taking any preventive measures. Review of Systems 2 Review of Systems: No recent cold or flu-like illness PMFSH Past Medical History Medical History HTN (hypertension) Fibromyalgia GERD (gastroesophageal reflux disease) Vertigo Asthma Bladder spasms Renal stones Hydronephrosis with urinary obstruction due to ureteral calculus History of nephrolithiasis Family History Family History Father History of kidney stones Mother No problems noted. Daughter History of kidney stones Social History Social History Household Members: None Housing: Condominium Do you presently have visiting nurse or other home services: No Alcohol intake: never Patient Tobacco Use Status: Never used Tobacco Meds Allergies Allergy/AdvReac Type Severity Reaction Status Date / Time codeine [Codeine] Allergy Severe ANAPHYLAXIS Verified 02/27/25 15:15 hydrocodone [From Vicodin] Allergy Severe ANAPHYLAXIS Verified 02/27/25 15:15 Iodinated Contrast Media Allergy Severe ANAPHYLAXIS Verified 02/27/25 15:15 [IV Dye, Iodine Containing] metoclopramide Allergy Severe HTN/TACHYCA Verified 02/27/25 15:15 [Metoclopramide] RDIA morphine [Morphine] Allergy Severe ANAPHYLAXIS Verified 02/27/25 15:15 amoxicillin [From AUGMENTIN] Allergy Intermediate DIZZY, Verified 02/27/25 15:15 NAUSEA, VOMITING aspirin [Aspirin] Allergy Intermediate VOMITING/DI Verified 02/27/25 15:15 ZZY ciprofloxacin [From CIPRO] Allergy Intermediate VOMITING, Verified 02/27/25 15:15 DIZZY clavulanic acid Allergy Intermediate DIZZY, Verified 02/27/25 15:15 [From AUGMENTIN] NAUSEA, VOMITING ketorolac [From TORADOL] Allergy Intermediate ALLERGIC Verified 02/27/25 15:15 RASH AND HIVES sumatriptan [From IMITREX] Allergy Intermediate SWELLING, Verified 02/27/25 15:15 DIFFICULTY BREATHING acetaminophen [From TYLENOL] Allergy Mild UNKNOWN Verified 02/27/25 15:15 adhesive tape [Adhesive Tape] Allergy Mild RASH Verified 02/27/25 15:15 caffeine Allergy Unknown unknown Verified 02/27/25 15:15 [Excedrin Extra Strength] hydromorphone [Dilaudid] Allergy Unknown unknown Verified 02/27/25 15:15 naproxen Allergy Unknown unknown Verified 02/27/25 15:15 nitrofurantoin [Macrobid] Allergy Unknown unknown Verified 02/27/25 15:15 oxycodone [Percocet] Allergy Unknown unknown Verified 02/27/25 15:15 penicillin V Allergy Unknown unknown Verified 02/27/25 15:15 prednisolone Allergy Unknown unknown Verified 02/27/25 15:15 prednisone [PREDNISONE] Allergy Unknown ITCHING, Verified 02/27/25 15:15 NAUSEA Codeine Phosphate Allergy Unknown Unknown Uncoded 11/28/20 14:47 Codeine Sulfate Allergy Unknown unknown Uncoded 11/28/20 14:47 From Percocet Allergy Unknown ANAPHYLAXIS Uncoded 11/28/20 14:47 Surgical Dressing Allergy Unknown unknown Uncoded 11/28/20 14:47 Vicodin Allergy Unknown unknown Uncoded 11/28/20 14:47 Active Medications: Current Medications Enoxaparin Sodium (Enoxaparin Sodium 40 Mg/0.4 Ml Syringe) 40 mg SUBCUT Q24H HOWARD Last Admin: 02/27/25 22:47 Dose: 40 mg Ondansetron HCl (Ondansetron Hcl 4 Mg/2 Ml Vial) 4 mg IVPUSH Q8H PRN PRN Reason: Nausea and Vomiting Home Medications ?Medication ?Instructions ?Recorded ?Confirmed ?Last Taken ?Type amlodipine 5 mg tablet 5 mg PO DAILY 05/23/21 05/23/21 Unknown History fluticasone 500 mcg-salmeterol 50 1 ea PO BID 05/23/21 05/23/21 Unknown History mcg/dose blistr powdr for inhalation estradiol 0.5 mg/0.5 gram (0.1 %) 1 packet transdermal DAILY 02/28/25 Unknown History transdermal gel packet fluticasone propionate 50 1 spray intranasal DAILY PRN 02/28/25 Unknown History mcg/actuation nasal congestion spray,suspension Physical Exam 2 Vital Signs: Vital Signs: Last Vital Signs Temp 98.0 F 02/28/25 09:05 Pulse 107 H 02/28/25 09:05 Resp 18 02/28/25 09:05 BP 161/76 H 02/28/25 09:05 Pulse Ox 97 02/28/25 09:05 O2 Del Method Room Air 02/28/25 09:05 BMI result Body Mass Index 39.2 Neuro: Other: He is alert and awake with normal spontaneity of speech fluency comprehension and flat affect. Face is symmetrical. Visual biggs are full. Extraocular muscles were intact. [id number] testing is normal. Deep tendon reflexes are 1+ with flexor plantars. Speech is normal. Results Labs 02/28/25 05:41 02/28/25 05:41 Labs: Short CBC 02/27/25 02/28/25 Range/Units 15:27 05:41 WBC 11.9 H 9.5 (4.8-10.8) X10*3/uL Hgb 14.5 14.3 (12.0-16.0) g/dl Hct 45.7 44.5 (37.0-47.0) % Plt Count 314 270 (160-400) X10*3/uL BMP 02/27/25 02/28/25 15:27 05:41 Sodium 140 141 Potassium 4.7 4.5 Chloride 110 H 111 H Carbon Dioxide 20 L 19 L BUN 16 19 H Creatinine 1.21 1.24 Calcium 9.3 8.9 Liver Function 02/27/25 Range/Units 15:27 Total Bilirubin 0.6 (0.0-1.0) mg/dL Direct Bilirubin 0.2 (0.0-0.5) mg/dL AST 15 (5-31) U/L ALT 9 (0-31) U/L Alkaline Phosphatase 97 (39-117) U/L Albumin 4.0 (3.5-5.0) g/dL Urine 02/27/25 Range/Units 18:14 Urine Color Yellow Urine Appearance Clear Urine pH 6.5 (5.0-9.0) Ur Specific [place] 1.010 (1.005-1.025) Urine Protein 100 (2+) H (Neg-Trace) mg/dL Urine Glucose (UA) Negative (Negative) mg/dL Head CT did not reveal any significant abnormality. Assessment and Plan (1) Status migrainosus: Status: Acute 54 years old woman with headache that is suggestive of status migrainosus. Exam is nonfocal in imaging did not reveal any significant abnormality. My recommendation is to try valproic acid or Depakote 250 mg twice a day for headache control. Because of her numerous allergies, giving her an abortive medicine is tricky. Nurtec might be a good choice if available in hospital. Procedures Date of Service Date of Service: 02/28/25
--- NOTE | 2025-02-28 09:52 | PHA.MEDREC ---
Pharmacy Consult ? Medication Reconciliation Pharmacy has completed the medication reconciliation. Spoke to patient at bedside, seemed a little confused but able to name most medications. She reported taking a testosterone pill, however nothing showed in claims or PDMP. Contacted [facility] to confirm the estradiol gel was the only hormonal supplement.
[2025-02-28] MEDS: amLODIPine Besylate 5 MG TABLET PO (11:20)
[2025-02-28] MEDS: Fluticasone/Vilanterol 200/25 BLST.W.DEV 1 PUFF INHALE (11:26)
--- NOTE | 2025-02-28 12:31 | HO.PM.IMPN ---
Subjective Subjective Date of Service: 02/28/25 Interval History: seen and evaluated this morning Feels better BP lower Denies any nausea or vomiting Review of Systems Review of Systems: Yes all other systems are reviewed and are negative Physical Exam Vital Signs: Vital Signs: Last Vital Signs Temp 97.7 F 02/28/25 10:59 Pulse 87 02/28/25 11:29 Resp 16 02/28/25 11:29 BP 160/81 H 02/28/25 10:59 Pulse Ox 98 02/28/25 10:59 O2 Del Method Room Air 02/28/25 10:59 BMI result Body Mass Index 39.2 Const: Other: Constitutional : Awake, interactive, not in distress Neck : Normal inspection, Supple Cardiovascular : RRR, no JVP, no lower extremity edema Respiratory : good bilateral air entry, no crackles, wheezes or rhonchi Gastrointestinal: soft, lax, Normal bowel sounds, Non tender Skin : Warm, Dry Neurological : Alert & oriented x3, No focal deficit , CN 2-12 within normal Objective Data Active Medications Amlodipine Besylate (Amlodipine Besylate 5 Mg Tablet) 5 mg PO DAILY [facility]; Protocol Last Admin: 02/28/25 11:20 Dose: 5 mg Documented By: THOMAS Enoxaparin Sodium (Enoxaparin Sodium 40 Mg/0.4 Ml Syringe) 40 mg SUBCUT Q24H [facility] Last Admin: 02/27/25 22:47 Dose: 40 mg Documented By: YANELIS Fluticasone Propionate (Fluticasone Propionate Nasal 16 [place]) 1 spray NOSTRIL-B BID [facility] Fluticasone/Vilanterol (Fluticasone/Vilanterol 200/25 Blst.W.Dev) 1 puff INHALE RDAILY [facility] Last Admin: 02/28/25 11:26 Dose: 1 puff Documented By: NIMO Midazolam HCl (Midazolam Hcl 5 Mg/Ml Vial) 2.5 mg IVPUSH ONCE PRN PRN Reason: anxiety/restlessness Multivitamins/Vitamin C (Multivitamin Tablet) 1 tab PO DAILY [facility] Ondansetron HCl (Ondansetron Hcl 4 Mg/2 Ml Vial) 4 mg IVPUSH Q8H PRN PRN Reason: Nausea and Vomiting Labs 02/28/25 05:41 02/28/25 05:41 Labs: Laboratory Results - last 24 hr 02/27/25 02/27/25 02/28/25 15:27 18:14 05:41 MCV 85.4 84.3 MCH 27.1 27.1 MCHC 31.7 32.1 RDW 14.1 14.2 Plt Count 314 270 MPV 9.9 10.0 Immature Gran % (Auto) 0.3 Neut % (Auto) 76.7 H Lymph % (Auto) 16.9 L [place] % (Auto) 5.5 Eos % (Auto) 0.1 Baso % (Auto) 0.5 Lymph # (Auto) 2.0 [place] # (Auto) 0.7 Eos # (Auto) 0.0 Baso # (Auto) 0.1 Abs Immat Gran (auto) 0.04 H Absolute Neuts (auto) 9.1 H Absolute Nucleated RBC 0.000 0.000 Nucleated RBC % (auto) 0.0 0.0 Anion Gap 15 16 Estim Creat Clear Calc 60.2 58.7 Estimated GFR 46 45 Random Glucose 123 H 94 Calcium 9.3 8.9 Magnesium 1.9 Total Bilirubin 0.6 Direct Bilirubin 0.2 AST 15 ALT 9 Alkaline Phosphatase 97 C-Reactive Protein 0.22 Total Protein 7.8 Albumin 4.0 Triglycerides 102 Cholesterol 215 H LDL Cholesterol, Calc 149 H HDL Cholesterol 46 Beta HCG, Quant 8 Urine Color Yellow Urine Appearance Clear Urine pH 6.5 Ur Specific [place] 1.010 Urine Protein 100 (2+) H Urine Glucose (UA) Negative Urine Ketones Trace Urine Blood Small (1+) H Urine Nitrite Negative Ur Leukocyte Esterase Negative Urine RBC 0-2 Urine WBC 0-5 Ur Squamous Epith Cells 3-5 Urine Bacteria None Seen Hyaline Casts 0-2 Influenza Type A (PCR) NEGATIVE Influenza Type B (PCR) NEGATIVE RSV RNA Qual (PCR) NEGATIVE SARS-CoV-2 RNA (RT-PCR) NEGATIVE Assessment and Plan (1) Status migrainosus: Status: Acute (2) Intractable headache: Status: Acute (3) HTN (hypertension): Status: Acute Plan Patient is a 54-year-old female with a past medical history significant for HTN, mild persistent asthma, migraines, history DVT (years ago, not on anticoagulant), who presented to the ED due to a headache, dizziness and weakness for the past 3 days. Intractable headache, complex migraine vs CVA head CT with asymmetric relative hypodensity in the left hemisphere white matter especially in the parietal, temporal and occipital lobes with poor definition of left basal ganglia which may represent acute ischemia/infarct To check MRI brain neuro checks neurology consult, try valproic acid or Depakote 250 mg twice a day for headache control. ibuprofen 800 mg prb w Benadryl To premedicate with Versed 2.5 mg , Zofran and O2 monitoring while placing her on [address] Berger who suggested doing an MRI brain Hypertension amlodipine 5 mg start Losartan if BP remains elevated Obesity BMI 40.2 weight loss encouraged Full code VTE prophylaxis: Lovenox Patient with intractable headache, complex migraine versus CVA, admit for observation with further evaluation including MRI and Neurology follow up Quality Stroke Does the patient have a stroke diagnosis?: No VTE Prior VTE?: Yes VTE Risk Level:: Medical - moderate - high VTE Device Contraindication: Treatment Not Indicated VTE Drug Contraindication: N/A - Med Ordered
[2025-02-28] MEDS: Ibuprofen 800 MG TABLET PO (15:36)
[2025-02-28] MEDS: ondansetron HCL 4 MG/2 ML VIAL IVPUSH (15:37)
[2025-02-28] MEDS: diphenhydrAMINE HCL 25 MG CAPSULE PO ×2 (15:37→21:37)
[2025-02-28] MEDS: Midazolam HCl 2 MG/2 ML VIAL 2.5 MG IVPUSH (15:55)
[2025-02-28] MEDS: Acetaminophen 325 MG TABLET 650 MG PO (21:37)
[2025-02-28] MEDS: Fluticasone Propionate Nasal 16 GM SPRAY 1 SPRAY NOSTRIL-B (21:38)
[2025-02-28] MEDS: Enoxaparin Sodium 40 MG/0.4 ML SYRINGE SUBCUT (23:01)
[2025-03-01] VITALS (7 sets, daily range): BP systolic 136–144; BP diastolic 66–87; PULSE 66–89; RESP 16–18; TEMP 36.4–36.8; O2SAT 95–99
--- NOTE | 2025-03-01 02:51 | PC.NURSE ---
Plumber Supervisor assumed care of this patient at 19:00. 20:00 hour, patient requested tylenol and benadryl for a headache, as well as senna stool softener which pt reported to group underwriter she takes regularly at home. Pt reported LBM was 4/20. Abdominal assessment benign. Denied n/v. Pt described headache as an all over constant throbbing rated as 5/10 accompanied by visual sensitivity to light. MAR reviewed, no tylenol orders in place, only ibuprofen which the pt was not due for. Prn benadryl in MAR was ordered for allergic reaction indication, not headache as pt states she takes this for at home. Covering Dr. Ontiveros was notified of patient requests. Allergies verified with patient who denied tylenol allergy listed in chart; this was discussed with the pharmacist and tylenol allergy was removed per their request. orders placed for 1x tylenol and 1x benadryl. During administration of these meds, the pt requested no further vitals overnight, stating It's not helpful for my headache to keep getting woken up . Plumber Supervisor discussed with the pt the importance of reassessments and vitals to ensure safety and monitoring for changes, though offered to cluster care where possible. Plumber Supervisor discussed 23:00 scheduled lovenox with the patient and offered to obtain vitals and midnight assessments during this time, which the patient was agreeable to. Tylenol and benadryl effectiveness reassessed during that time as well per pt request. +Effect, patient reported improvement to 3/10. Pt again verbalized during 23:00 care her wishes to not be woken during the next 04:00 vitals and assessments. MD notified. Pt continues on tele and spo2 monitoring. Plan of care continues.?
[2025-03-01] MEDS: Fluticasone/Vilanterol 200/25 BLST.W.DEV 1 PUFF INHALE (07:48)
[2025-03-01 09:25] LABS: Hematocrit 41.3 % (37.0-47.0); Hemoglobin 13.4 g/dl (12.0-16.0); Mean Corpuscular HGB Conc 32.4 g/dl (31.0-35.0); Mean Corpuscular Hemoglobin 27.5 pg (27.0-33.0); Mean Corpuscular Volume 84.6 fL (80.0-98.0); Mean Platelet Volume 10.1 fL (9.4-12.3); Platelet Count 276 X10*3/uL (160-400); Red Blood Count 4.88 X10*6/uL (4.20-5.50); Red Cell Distribution Width 14.2 % (11.0-16.0); White Blood Count 7.9 X10*3/uL (4.8-10.8)
[2025-03-01 09:35] LABS: Anion Gap 12 (12-20); Blood Urea Nitrogen 25 mg/dL (9-16); Calcium 8.9 mg/dL (8.4-10.2); Carbon Dioxide 25 mmol/L (22-29); Chloride 109 mmol/L (96-108); Creatinine Clr Calc Pharmacy 53.2; Estimated Glomerular Filt Rate 41; Glucose Random 91 mg/dL (60-115); Potassium 4.5 mmol/L (3.3-5.1); Sodium 141 mmol/L (135-145)
--- NOTE | 2025-03-01 09:35 | MHC.CM.PN ---
AMPARO 03/01/25, EMR REVIEWED PT ADMITTED W/INTACTABLE H/A, VS COMPLEX MIGRAINE VS CVA, CM MET W/PT WHO REPORTS SHE LIVES ALONE, REECENTLY SEPERATED, IS FULLY INDEP W/ALL CARE, DENIES USE OF DME/SERVICES, PT'S GOAL FRO DC IS HOME AND PT WILL ARRANGE HER OWN TRANSPORT. PCP ON FILE VERIFIED AND PT REPORTS HER SISTER LEONELA MUJICA [phone] IS HER HCP, COPY HAS BEEN REQUESTED.
[2025-03-01] MEDS: amLODIPine Besylate 5 MG TABLET PO (09:47)
[2025-03-01] MEDS: Fluticasone Propionate Nasal 16 GM SPRAY 1 SPRAY NOSTRIL-B (09:47)
[2025-03-01] MEDS: diphenhydrAMINE HCL 25 MG CAPSULE PO (10:54)
[2025-03-01] MEDS: Divalproex Sodium 250 MG TABLET.DR PO (10:54)
[2025-03-01] MEDS: Acetaminophen 325 MG TABLET 975 MG PO (10:55)
[2025-03-01] MEDS: Sennosides 8.6 MG TABLET 17.2 MG PO (10:55)
[2025-03-01] MEDS: Multivitamin TABLET 1 TAB PO (10:55)
--- NOTE | 2025-03-01 13:28 | P.DS_ITS ---
DS: Providers Provider Date of Service: 03/01/25 Date of admission: 02/27/25 19:34 Date of discharge: 03/01/25 Primary care physician: GOLD Herrera Consults: 02/27/25 22:17 Consult to Neurology Routine Consulting Provider: [facility] Reason for consultation: complex migraine vs CVA, abnormal CT Has provider been notified: No DS: Diagnosis Discharge Diagnosis (1) Status migrainosus: Status: Acute (2) Intractable headache: Status: Acute (3) HTN (hypertension): Status: Acute (4) Acute headache: Status: Acute DS: Summary Hospital Course Hospital Course: Admission note HPI Patient is a 54-year-old female with a past medical history significant for HTN, mild persistent asthma, migraines, history DVT (years ago, not on anticoagulant), who presented to the ED due to a headache, dizziness and weakness for the past 3 days. She does report recent trialed [place] and denies any neck pain, fever or sick contacts. Her headache is right-sided and she experiences bilateral eye pressure. She describes it as a 6/10 throbbing pain. This does feel similar to her chronic migraines however she reports that her medication is not helping. She has multiple allergies but can not tolerate some medications with Benadryl. She has also had nausea, vomiting and chills. Chills or new for her with the migraine as she has never had this before. She denies any abdominal pain or diarrhea but is having some urinary frequency. She did not take her blood pressure medication today. She denies any chest pain or shortness of breath. Hospital course The patient was admitted for evaluation of Intractable headache secondary to status Migrainisus as head CT with asymmetric relative hypodensity in the left hemisphere white matter especially in the parietal, temporal and occipital lobes with poor definition of left basal ganglia which may represent acute ischemia/infarct. given that concern she had MRI, MRA and Carotid US which all came back negative for any acute stroke, narrowing or blood flow problem. She was seen by neurology who recommended to try Depakote 250 mg twice a day for headache control and avoid abortive medications given her allergy list. The patient did better with ibuprofen 800 mg prb w Benadryl. Looking at her medications she is on Estrogen replacement therapy for the last 2 months which she was not adherent to using it daily. level swinging of the Estrogen can increase risk of Migraine. Will lower the dose to 0.25 mg daily and advised her to follow with gynecology as outpatient and take the Estrogen daily as prescribed. # Hypertension. To continue amlodipine 5 mg. Monitor as outpatient. # Obesity. BMI 40.2. weight loss encouraged and she has been working on that. Discharge plan Start Depakote 250 mg twice a day Ibuprofen, Tylenol for pain control Get vision evaluation Decrease Estradiol to 0.25 mg transdermal packet and follow with Dr Adrian from Gynecology as outpatient Follow with neurology outpatient for further advice Dr Berger Time Attestation Discharge Coordination Time (in mins): 28 Quality: Safe Use of Opioids Does Pt have an Active Cancer Diagnosis on the Problem List?: No Quality: Stroke Does the patient have a stroke diagnosis?: No Physical Exam Vital Signs: Vital Signs: Last Vital Signs Temp 97.6 F 03/01/25 11:46 Pulse 89 03/01/25 11:46 Resp 18 03/01/25 11:46 BP 136/66 03/01/25 11:46 Pulse Ox 98 03/01/25 11:46 O2 Del Method Room Air 03/01/25 11:46 BMI result Body Mass Index 39.2 Const: Other: Constitutional : Awake, interactive, not in distress Neck : Normal inspection, Supple Cardiovascular : RRR, no JVP, no lower extremity edema Respiratory : good bilateral air entry, no crackles, wheezes or rhonchi Gastrointestinal: soft, lax, Normal bowel sounds, Non tender Skin : Warm, Dry Neurological : Alert & oriented x3, No focal deficit , CN 2-12 within normal DS: Data Data Completed and Pending Labs on day of discharge: Laboratory Results - last 24 hr 03/01/25 03/01/25 03/01/25 08:51 08:52 09:05 WBC 7.9 RBC 4.88 Hgb 13.4 Hct 41.3 MCV 84.6 MCH 27.5 MCHC 32.4 RDW 14.2 Plt Count 276 MPV 10.1 Absolute Nucleated RBC 0.000 Nucleated RBC % (auto) 0.0 Sodium 141 Cancelled Potassium 4.5 Cancelled Chloride 109 H Cancelled Carbon Dioxide 25 Cancelled Anion Gap 12 Cancelled BUN 25 H Cancelled Creatinine 1.35 Cancelled Estim Creat Clear Calc 53.2 Cancelled Estimated GFR 41 Cancelled Random Glucose 91 Cancelled Calcium 8.9 Cancelled Imaging Chest x-ray: Radiologist's impression: MRI brain IMPRESSION: 1. No acute intracranial findings. No evidence of acute ischemia, mass or mass effect. This document has been electronically signed by: Landen Sherman MD on 02/28/2025 17:19:46 MRA Brain IMPRESSION: 1. Normal MRA brain This document has been electronically signed by: Landen Sherman MD on 02/28/2025 17:18:32 Carotid US IMPRESSION: Normal carotid velocities, no significant stenosis (0-49% stenosis). Indeterminate thyroid nodule. Correlation with dedicated US thyroid as indicated. Discharge Plan Discharge Anticipated Discharge Date/Time: 03/01/25 13:19 Patient Disposition: Home, Self-Care Discharge Diagnosis: Status Migrainoses Referrals: Ana Cullen PA [Primary Care Provider] - 1 Week Danny Adrian MD [Physician] - 2 Weeks (Menopause management, Migraine attacks with Estrogen supplement. ) Discharge Medications: New divalproex 250 mg Tablet,Delayed Release (Dr/Ec) 250 mg PO BID Qty: 60 0RF estradiol 0.25 mg/0.25 gram (0.1 %) gel in packet 1 packet transdermal DAILY Qty: 30 0RF Continued fluticasone propionate 50 mcg/actuation spray,suspension 1 spray intranasal BID multivitamin Tablet 1 tab PO DAILY amlodipine 5 mg tablet 5 mg PO DAILY fluticasone propion-salmeterol 500-50 mcg/dose blister with device 1 ea PO BID Discontinued estradiol 0.5 mg/0.5 gram (0.1 %) gel in packet 1 packet transdermal DAILY Discharge Orders: Discharge Order (Routine); Ordered 03/01/25 Ordered By: Dora Shaw Diet: Advance to usual diet Activity on Discharge: As tolerated Stand Alone Forms: Patient Portal Discharge page Print Language: [place]olan Care Plan Goals: Start Depakote 250 mg twice a day Ibuprofen, Tylenol for pain control Get vision evaluation Decrease Estradiol to 0.25 mg transdermal packet and follow with Dr Adrian from Gynecology as outpatient Follow with neurology outpatient for further advice Dr Berger Health Concerns: Migraine Plan of Treatment: Depakote Neurology follow up Assessment: as above
--- NOTE | 2025-03-01 14:30 | MHC.CM.PN ---
PT MEDICALLY CLEARED FOR DC HOME SELF CARE, PT WILL ARRANGE TRANSPORT
== END 2025-03-01 17:58 | disposition home or self-care (01) ==
LOC: HO.ED 19:10 → HO.EDOVER 19:36 → HO.IMC 02-28 08:06
PROVIDERS: Nurse Practitioner Family; Physician Assistant; Admitting Provider Student in an Organized Health Care Education/Training Program; Emergency Provider Emergency Medicine; PCP Physician Assistant Medical; Visit Provider Student in an Organized Health Care Education/Training Program
DX: G43.901 Migraine, unspecified, not intractable, with status migrainosus (principal); R42 Dizziness and giddiness; I10 Essential (primary) hypertension; R11.2 Nausea with vomiting, unspecified; R93.0 Abnormal findings on diagnostic imaging of skull and head, not elsewhere classified; J45.30 Mild persistent asthma, uncomplicated; E66.9 Obesity, unspecified; Z68.41 Body mass index [BMI] 40.0-44.9, adult; Z03.818 Encounter for observation for suspected exposure to other biological agents ruled out; Z79.899 Other long term (current) drug therapy; Z86.718 Personal history of other venous thrombosis and embolism
CPT/HCPCS: 0241U; 36415; 70450; 70544; 70551; 80048; 80061; 80076; 81001; 83735; 84484; 84702; 85025; 85027; 86140; 93005; 93880; 94640; 96361; 96372; 96374; 96375; 96376; 99222; 99285; J0737; J1200; J1650; J1885; J2250; J2405; J7120

== ENCOUNTER → 2025-02-27 15:14 | Outpatient (BNV) | payer OTHER, SELFPAY | PROVIDERS: Admitting Provider Student in an Organized Health Care Education/Training Program; Emergency Provider Emergency Medicine; PCP Physician Assistant Medical; Visit Provider Internal Medicine | DX: R51.9 Headache, unspecified (principal) | CPT/HCPCS: 93010 ==

== ENCOUNTER → 2025-02-27 17:14 | Outpatient (BNV) | payer OTHER, SELFPAY | PROVIDERS: Emergency Provider Emergency Medicine; PCP Physician Assistant Medical; Visit Provider Specialist | DX: R51.9 Headache, unspecified (principal) | CPT/HCPCS: 70450 ==

== ENCOUNTER 2025-02-27 19:34 | Outpatient (BNV) | payer OTHER, SELFPAY | END 2025-02-28 14:37 | PROVIDERS: Admitting Provider Student in an Organized Health Care Education/Training Program; Emergency Provider Emergency Medicine; PCP Physician Assistant Medical; Visit Provider Nuclear Medicine | DX: R93.0 Abnormal findings on diagnostic imaging of skull and head, not elsewhere classified (principal); R51.9 Headache, unspecified | CPT/HCPCS: 70544; 70551; 93880 ==

== ENCOUNTER → 2025-02-27 19:34 | Outpatient (BNV) | payer OTHER, SELFPAY | PROVIDERS: Admitting Provider Student in an Organized Health Care Education/Training Program; Emergency Provider Emergency Medicine; PCP Physician Assistant Medical; Visit Provider Psychiatry & Neurology Neurology | DX: G43.901 Migraine, unspecified, not intractable, with status migrainosus (principal) | CPT/HCPCS: 99222 ==

== ENCOUNTER → 2025-02-27 19:34 | Outpatient (BNV) | payer OTHER, SELFPAY | PROVIDERS: Admitting Provider Student in an Organized Health Care Education/Training Program; Emergency Provider Emergency Medicine; PCP Physician Assistant Medical; Visit Provider Physician Assistant | DX: G43.901 Migraine, unspecified, not intractable, with status migrainosus (principal); I10 Essential (primary) hypertension | CPT/HCPCS: 99223; 99232; 99238 ==

== ENCOUNTER 2025-08-26 16:16 | Outpatient (REF) | payer OTHER, SELFPAY ==
--- OUTSIDE RECORDS SUMMARY | 2025-07-13 07:15 | XMS_ITS ---
Author Organization [facility] [address] Address [address] [place] [address] Care Team Providers Care Radiology Interventional Physician Name Role Phone Ana Cullen Primary Care Provider Unavailab RAMBO Swann Unavailable [phone] REASON FOR VISIT Requesting Ozempic but not Diabetic. I did go over the requirements for Ozempics with her and she is aware she must have DM Encounters Encounter Location Date Provider Diagnosis [facility] [address] [place] [address] 07/13/2025 RAMBO HERNANDEZ Plan Of Treatment Next Appt Details Provider Name:RAMBO HERNANDEZ, 03:00:00 PM, [address] [facility], [place], [address], Progress Notes * VERITOSerenaeDOB: [birth year] (55 yo F)Acc No.[id number]:07/13/2025 Patient: Tamia LUZ Lupe Provider: Mateusz HERNANDEZ PA-C :1970 A ge:55 Y S ex:Female Date:07/13/2025 Address:[address] [place] [place], [place] Pcp:Ana Cullen Subjective: * Chief Complaints: * 1 . Requesting Ozempic but not Diabetic. I did go over the requirements for Ozempics with her and she is aware she must have DM. * Medical History: Objective: * Vitals: Assessment: Plan: * Treatment: * Images: Billing Information: * Visit Code: * Procedure Codes: * Electronic signature of JOEL HERNANDEZ PA-C on 08/26/2025 at 06:25 PM EDT Sign off status: Pending * Provider: Mateusz HERNANDEZ PA-C Date: 0 07/13/2025 Generated for Stephen masterson/Chandler/Jovanny on: 1 06:25 PM EDT
--- NOTE | ~2025-08-26 | MM_ITS ---
EXAMINATION: MM SCREENING DIGITAL BREAST TOMOSYNTHESIS, BILATERAL CLINICAL INFORMATION: Screening. Asymptomatic. Patient states she has a new palpable lump right upper outer quadrant 11:00 which is also painful. COMPARISON: Mammography: Comparison is made with available priors TECHNIQUE: Digital breast mammography with tomosynthesis is performed in both the craniocaudal and mediolateral oblique views along with computer-aided detection (CAD). FINDINGS: There are scattered areas of fibroglandular density. There are no significant masses, abnormal calcifications, or other abnormalities. MM/MM tomosynthesis screening BI IMPRESSION: No mammographic evidence of malignancy. Patient has a new right palpable lump upper outer quadrant with pain. Recommend ultrasound at this time for further evaluation. ASSESSMENT: BI-RADS Category 0: Incomplete - Need additional Imaging Evaluation RECOMMENDATION: Recommend right breast ultrasound for area of patient's palpable lump and pain. Additional Imaging required Electronically signed by: Manuela Lynch DO 08/26/2025 04:52 PM EDT
--- OUTSIDE RECORDS SUMMARY | 2025-08-26 18:25 | XMS_ITS | Encounter Summary ---
Author Organization [facility] Address [address] [place] [address] Phone Care Team Providers Care Manufacturing Mechanic Name Role Phone Ana Cullen Primary Care Provider Encounter Details Date Type Department Care Team (Late st Contact Info) Description 12/05/2022 Procedure Pass [facility] [address] [place] [address] Social History Tobacco Use Types Packs/Day Years Used Date Smoking Tobacco: Never Smokeless Tobacco: Never Alcohol Use Standard Drinks/Week Comments No 0 (1 standard drink = 0.6 oz pur e alcohol) Intimate Partner Violence Answer Date R ecorded Are you denied basic needs s uch as food, clothing, or medical care? No 12/01/2022 In the past 12 months have y ou been in a relationship with a person who hurts, threatens, or tries to control you? No 12/01/2022 Are you denied basic needs s uch as food, clothing, or medical care? No 12/01/2022 In the past 12 months have y ou been in a relationship with a person who hurts, threatens, or tries to control you? 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 It is not the complete legal health record.[facility]
--- OUTSIDE RECORDS SUMMARY | 2025-08-26 18:25 | XMS_ITS | Encounter Summary ---
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 Wish to be (Past 1 Month) No 12/01/2022 2:54 PM EST Nan Bryson, MELISSA 2. Non-Specific Active Suici michael Thoughts (Past 1 Month) No 12/01/2022 2:54 PM EST Nan Bryson, MELISSA 6. Suicidal Behavior (Lifetime) No 2:54 PM EST Nan Bryson RN documented as of this encounter Plan of Treatment Not on file documented as of this encounter Visit Diagnoses Not on filedocumented in this encounter Additional Health Concerns Infection Onset Date Last Indicated Resolved Time CoV-Presumed Comment:Neg covid 11/14/2022 12/04/2022 12/04/2022 6:[address] CoV-Risk 12/01/2022 12/01/2022 12/02/2022 9:19 AM EST CoV-Risk 12/03/2022 12/03/2022 12/04/2022 6:24 AM EST documented as of this encounter Care Teams Director Child Abuse Therapy Relationship Specialty Start Date End Date Ana Cullen PA [address] [place] [address] [place] [address] PCP - General Physician [employer] Crewmember 12/01/22 documented as of this encounter Additional Source Comments The information contained in this document represents components of the legal health record. It is not the complete legal health record.[facility]
--- OUTSIDE RECORDS SUMMARY | 2025-08-26 18:25 | XMS_ITS | Clinical Summary ---
Author Organization [facility] Address [address] [place] [address] Phone Care Team Providers Care Channel Development Director Name Role Phone Ana Cullen Primary Care Provider [phone] Allergies Active Allergy Reactions Criticality Noted Date Comments Aspirin Hives 05/12/2018 Amoxicillin-Pot Clavulanate Nausea and/or Vomiting 05/12/2018 Has tolerated amoxicillin alone without complication. Ciprofloxacin Nausea and/or Vomiting 05/12/2018 Codeine Hives 05/12/2018 Hydromorphone 06/12/2020 Sumatriptan 11/23/2018 Iodinated Contrast Media Hives 05/12/2018 Throat swelling Ketorolac 04/09/2021 Needs benadryl with it to tolerate - pt has leg shaking Morphine Hives 05/12/2018 Oxycodone-Acetaminophen Hives 05/12/2018 Prednisone 06/12/2020 Itching Metoclopramide Hcl 05/12/2018 Adhesive 06/12/2020 Acetaminophen 06/12/2020 Hydrocodone-Acetaminophe n Hives 05/12/2018 Medications amLODIPine (NORVASC) 5 MG tablet Take 5 mg by mouth daily. Active fluticasone propion-salmete rol (ADVAIR DISKUS) 250-50 mcg/dose DISKUS Inhale 1 puff into the lungs 2 (two) times a day. 1 each 0 Active ipratropium-alb uterol (DUONEB) 0.5-2.5 mg/3 mL nebulizer solution Take 3 mL by nebulization 4 (four) times a day. 60 vial 0 Active bacillus coagulans-inuli n 1 billion-250 cell-mg Cap Take 1 tablet by mouth daily. Active zinc 50 mg Tab tablet Take 1 tablet by mouth daily. Active selenium 50 mcg Tab Take 50 mcg by mouth daily. Active multivitamin per tablet Take 1 tablet by mouth daily. Active loratadine (CLARITIN) 10 mg tablet Take 10 mg by mouth daily as needed for allergies. Active meclizine (ANTIVERT) 12.5 mg tablet Take 12.5 mg by mouth 4 (four) times a day as needed for dizziness. Active omeprazole (PRILOSEC) 20 mg TbEC Take 20 mg by mouth daily before breakfast. Active benzonatate (TESSALON) 100 MG capsule 2 Active cholecalciferol , vitamin D3, 25 mcg (1,000 unit) capsule Take 1 capsule by mouth daily. Active dexAMETHasone (DECADRON) 4 MG tablet Take 1.5 tablets for 2 days, 1 tablet for 2 days, then 1/2 tablet for two days 9 tablet 3 Active montelukast (SINGULAIR) 10 mg tablet Take 1 tablet (10 mg total) by mouth daily. 30 tablet 3 Active phenazopyridine (PYRIDIUM) 100 MG tablet Take 1 tablet (100 mg total) by mouth 3 (three) times a day as needed for pain (specific location in comments). 10 tablet 3 Active ibuprofen (ADVIL,MOTRIN) 800 MG tablet Take 1 tablet (800 mg total) by mouth every 8 (eight) hours as needed for pain (specific location in comments) (severe pain). 10 tablet 3 Active Active Problems Problem Noted Date Diagnosed Date Flank pain 12/01/2022 Assessment & Plan (12/05/2022 3:37 PM EST): Patient has received care generally from Dr. Lu in [place] but most recently in [place]. There was some insurance issues interfering with her care. Which she describes sounds like ureteral reflux and she describes surgery to correct this at some point needed in the future Seen by local urology but they plan to follow-up as an outpatient with no procedure in-house, largely due to lack of acuity-normal white count, renal function, negative infection, nonacute CT- and plan to follow as an outpatient Her urine was mixed growth, contaminated. She insist on a repeat urine reflex culture, it is pending Her pain is persistent requiring Toradol. She has tried Pyridium in the past and tolerated. Is willing for another trial now, when given with benedryl, it helps. She is aware she will need to be discharged in order to obtain urology follow-up and intervention. It sounds like she is interested in following up with Dr. Bosch at [facility], she has been reaching out to get an appointment Migraine headache 04/12/2021 Assessment & Plan (04/12/2021 5:07 PM EDT): History of migraine previously, patient believes that the steroids had contributed to headache Methylprednisolone will be discontinued First-line treatment with Reglan is not available due to an allergy Zofran is ineffective for the patient's this was discontinued Ibuprofen 800 mg every 8 hours as needed according to the patient's prior history with migraine She also requested meclizine and Benadryl and then the meclizine was added to her regimen Will order 1 L of LR and monitor her symptoms, hopeful for resolution by tomorrow. Elevated serum creatinine 04/09/2021 Assessment & Plan (04/10/2021 3:14 PM EDT): -likely d/t bactrim Vulvovaginal candidiasis 04/09/2021 Costochondritis 04/09/2021 Assessment & Plan (04/11/2021 1:57 PM EDT): I do believe there is some costochondritis contributing to her symptoms. Chest pain 04/09/2021 Assessment & Plan (04/12/2021 2:04 PM EDT): Improved with some colchicine and steroids. I had considered NTG and a barium swallow looking for GI causes of this chest pain. But maybe avoid it for now while she has a headache. Assessment & Plan (04/12/2021 5:06 PM EDT): -Reportedly history of bilateral distal leg clots about a year ago seen in [place] emergency, anticoagulation was not recommended, did get some records from [place] but they did not address blood clots so this history is still unknown -she was evaluated with lower extremity ultrasound no DVT seen, VQ scan which was negative for pulmonary embolism and echo which was reassuring -stopped Lovenox on 04/11 as there is no acute thromboembolic event found -Pulm and Cards both recommended a high resolution CT of the chest but given patient's struggle with migraine today, she has postponed the procedure and refused to go when transport came this afternoon. -she is not able to tolerate contrast due to history of a severe allergy -Costochondritis is on differential -re her concern for lupus discussed that she is having work-up for some autoimmune vasculitis etiologies here and that further evaluation for lupus would probably be through rheumatology -Dr. Whittaker recommended trial of colchicine for possible pericarditis -He recommended autoimmune studies rheumatoid factor is negative and EB is pending and viral panel also pending still -Patient with clear lungs and methylprednisolone seemed to have spurred the migraine so this will be discontinued -She recommended vasculitis work-up and outpatient PFTs possible further pulmonary work-up Symptoms of the chest pain today per the patient have improved. Will treat migraine as below and monitor symptoms tomorrow and complete work-up as patient wishes to comply. If she does not wish to perform additional testing, then will likely advocate for discharge and outpatient follow-up. Moderate persistent asthma 04/09/2021 Assessment & Plan (12/05/2022 3:41 PM EST): Still dry frequent cough. Denies any wheezing or phlegm production. No fevers or chills. Normal white count DuoNeb causes side effects so she prefers to use straight albuterol. Prominent cough and fatigue post COVID and post influenza just a couple of weeks prior to it. She has side effects from prednisone including headache. She was on a trial of low-dose dexamethasone, 2 mg daily( about 13mg prednisone) She thinks her chest feels academic tutor, but still more short of breath than she typically is with asthma. Some leg swelling as well. Tells me she has had multiple episodes of superficial phlebitis of the left leg. She does have some discomfort in the left leg as well. Did a D- dimer which is elevated, which could be from her recent COVID. The sounds of the legs are negative. Echocardiogram does not show any evidence of right heart strain or significant findings of concern. Patient will not do a CT scan as she has had pretty significant reactions despite being premedicated per her report. We will get a VQ scan, this will rule out any significant perfusion deficits. The patient had this work-up back in April as well. If her work-up is negative we would be ready to discharge her home. Discussed with her primary care provider Ana Cullen, many patient's complaints are chronic including leg swelling, neurologic pain. The shortness of breath has occurred in conjunction with 2 recent significant upper respiratory infections. She will be awaiting discharge note in helping the patient to any further outpatient work-up is necessary. Assessment & Plan (04/12/2021 2:04 PM EDT): Recommend changing nebs to xopenex. Should get outpatient PFTs. Okay to stop steroids if it causing the patient severe headaches. Makes me worry about a fungal sinusitis. Ordered CT face and a high res CT of lungs. F/u vasculitis panel looking for [place], Granulomatous polyangiitis, etc. Renal stone 02/14/2021 Assessment & Plan (04/09/2021 4:58 PM EDT): She is supposed to be having lithotripsy and stent placement next week. She is on Bactrim for continued issues with urinary tract infections. -Would continue the Bactrim for now Family History Medical History Relation Comments Heart disease Father Hypertension Father Stroke Father Breast cancer Mother Ovarian cancer Mother Clotting disorder Neg Hx No known histo ry, but she has never specifically asked. Relation Status Comments Father Alive Mother Alive Social History Tobacco Use Types Packs/Day Years Used Date Smoking Tobacco: Never Smokeless Tobacco: Never Alcohol Use Standard Drinks/Week Comments No 0 (1 standard drink = 0.6 oz pur e alcohol) Education Answer Date Recorded Are you interested in more education? Not on celestine e 03/07/2023 Are you concerned about learning? Not on file 03/07/2023 No 03/07/2023 No 03/07/2023 Digital Access Answer Date Recorded No 04/07/2023 No 04/07/2023 No 04/07/2023 Reliable internet access at home? Not on file 04/07/2023 Device with a working camera? 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 Not on file Not on fi le Last Filed Vital Signs Vital Sign Reading Time Taken Comments Blood Pressure 144/79 12/06/2022 8:24 AM EST Pulse 97 12/06/2022 8:24 AM EST Temperature 36.7 C (98.1 F) 12/06/2022 8:24 AM EST Respiratory Rate 20 12/06/2022 8:20 AM EST Oxygen Saturation 95% 12/06/2022 8:24 AM EST Inhaled Oxygen Concentration - - Weight 115.7 kg (255 lb) 12/04/2022 9:00 AM EST Height 160 cm (5' 3 ) 12/04/2022 9:00 AM EST Body Mass Index 45.17 12/04/2022 9:00 AM EST Plan of Treatment Health Maintenance Due Date Last Done Comments LIPID PANEL 1969 DEPRESSION SCREENING 1981 HEPATITIS C SCREENING 1987 HIV ONE-TIME SCREENING (18-6 5 YEARS) 1987 PNEUMOCOCCAL VACCINES (50+ y ears) (1 of 2 - PCV) 1988 PAP SMEAR 1990 MAMMOGRAM 2009 COLOGUARD 2014 COLONOSCOPY 2014 COLORECTAL CANCER SCREENING 2014 FIT TEST 2014 FOBT 2014 SIGMOIDOSCOPY 2014 VIRTUAL COLONOSCOPY 2014 RSV VACCINE (1 - Risk 50-74 years 1-dose series) 2019 ZOSTER VACCINES (1 of 2) 2019 INFLUENZA VACCINE (#1) 2025 COVID-19 VACCINE (2024-2 6 season) 2025 SCREENING FOR DIABETES 12/02/2025 12/02/2022 Adult Td,Tdap Booster 08/24/2028 08/24/2018 SMOKING STATUS SCREENING (On ce After 26 Yrs) Completed 12/19/2021 HEPATITIS A VACCINES Aged Out No long er eligible based on patient's age to complete this topic HIB VACCINES Aged Out No longer eligi ble based on patient's age to complete this topic MENINGOCOCCAL VACCINES (ACWY) Aged Out No longer eligible based on patient's age to complete this topic MENINGOCOCCAL VACCINES (B) Aged Out N o longer eligible based on patient's age to complete this topic Medical Devices Not on file Insurance O INDEMNITY [facility] BENEFITS ADMINISTRATORS [place] INDEMN[place] [employer]MIN[employer]AT[employer] [place] INDEMN[place] [employer]AT[employer] [place] IN[place]MN[place] [employer]MIN[employer]AT[employer] [place]DEMNITY [employer] BENEFITS ADMINISTRATORS O INDEMNITY BLUE [facility] BENEFITS ADMINISTRATORS Advance Directives For more information, please contact: [phone] (9AM - 5PM [place], Friday-Friday) * Full Code (Latest Code Status on File) Date Activated Date Inactivated Comments 12/01/2022 10:15 PM Question Answer Comments Code Status Confirmed With: Patient * Full Code Date Activated Date Inactivated Comments 04/09/2021 2:00 AM 12/01/2022 10:15 PM Question Answer Comments Code Status Confirmed With: Patient Care Teams Channel Development Director Relationship Specialty Start Date End Date Ana Cullen PA [address], [address] [address] PCP - General Physician German Professor 12/01/22 Additional Source Comments The information contained in this document represents components of the legal health record. It is not the complete legal health record.[facility]
--- OUTSIDE RECORDS SUMMARY | 2025-08-26 18:25 | XMS_ITS | Clinical Summary ---
Author Organization [facility] Address [address] [place] [address] Care Team Providers Care Electrical Electronics Engineers Name Role Phone Ana Cullen Primary Care Provider [phone] Allergies Active Allergy Reactions Criticality Noted Date [...] of Health Annual Screening 11/10/2024 Influenza Vaccine (#1) 2025 DTaP,Tdap,and Td Vaccines (2 - Td or Tdap) 08/24/2028 08/24/2018 RSV Vaccine (60+ years old a nd patients) (1 - 1-dose 75+ series) 2044 Insurance [employer] Care Teams Electrical Electronics Engineers Relationship Specialty Start Date End Date Ana Cullen PCP - General Internal Medicine 02/19/22
--- OUTSIDE RECORDS SUMMARY | 2025-08-26 18:25 | XMS_ITS | Encounter Summary ---
Author Organization [facility] Address [address] [place] [address] Phone Care Team Providers Care Extraction Machine Operator Name Role Phone Marita Miguel NP Primary Care Provider [phone] Ana Cullen Primary Care Provider [phone] Encounter Details Date Type Department Care Team (Late st Contact Info) Description 12/19/2021 Procedure Pass [facility], Ct Scan - [address] [address] Social History Tobacco Use Types Packs/Day Years Used Date Smoking Tobacco: Never Smokeless Tobacco: Never Alcohol Use Standard Drinks/Week Comments No 0 (1 standard drink = 0.6 oz pur e alcohol) Comments No Sex and Gender Information Value Date Recorded Sex Assigned at Female 05/12/2018 3:48 PM EDT Legal Sex Female 9:36 PM EDT Gender Identity Female 05/12/2018 3:48 PM EDT Sexual Orientation Choose not to disclose 2018 3:30 PM EST 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 Wish to be (Past 1 Month) No 022 2:35 PM Lis Mclain, RN 2. Non-Specific Active Suici michael Thoughts (Past 1 Month) No 12/19/2021 2:35 PM Lis Mclain , MELISSA 6. Suicidal Behavior (Lifetime) No 2 2:35 PM EST SantanaLis RN documented as of this encounter Plan [...] documented as of this encounter Care Teams Extraction Machine Operator Relationship Specialty Start Date End Date Marita Miguel NP [address] [place] [address] PCP - General Family Medicine 04/10/21 11/30/22 Ana Cullen PA [address] [place] [address] PCP - General Physician Records Section Supervisor 12/01/22 documented as of this encounter Additional Source Comments The information contained in this document represents components of the legal health record. It is not the complete legal health record.[facility]
--- OUTSIDE RECORDS SUMMARY | 2025-08-26 18:26 | XMS_ITS | Encounter Summary ---
Author Organization [facility] Address [address] [place] [address] Phone Care Team Providers Care Cisco Consultant Name Role Phone Marita Miguel NP Primary Care Provider [phone] Ana Cullen Primary Care Provider [phone] Encounter Details Date Type Department Care Team (Late st Contact Info) Description 04/10/2021 Procedure Pass [facility] [address] [place] [address] Social History Tobacco Use Types Packs/Day Years Used Date Smoking Tobacco: Never Smokeless Tobacco: Never Alcohol Use Standard Drinks/Week Comments No 0 (1 standard drink = 0.6 oz pur e alcohol) Comments Unknown Sex and Gender Information Value Date Recorded Sex Assigned at Female 05/12/2018 3:48 PM EDT Legal Sex Female 9:36 PM EDT Gender Identity Female 05/12/2018 3:48 PM EDT Sexual Orientation Choose not to disclose 2018 3:30 PM EST 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 It is not the complete legal health record.[facility]
--- OUTSIDE RECORDS SUMMARY | 2025-08-26 18:26 | XMS_ITS | Encounter Summary ---
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 Wish to be (Past 1 Month) No 021 8:18 PM EDT Sinan Brand, RN 2. Non-Specific Active Suici michael Thoughts (Past 1 Month) No 07/23/2021 8:18 PM EDT Emmanuel Brand RN 6. Suicidal Behavior (Lifetime) No 8:18 PM EDT Sinan Brand, MELISSA documented as of this encounter Plan of [...] as of this encounter Care Teams Director Automotive Relationship Specialty Start Date End Date Marita Miguel NP [address] [place] [address] PCP - General Family Medicine 04/10/21 11/30/22 Ana Cullen PA [address] [place] [address] PCP - General Physician Ve Teacher 12/01/22 documented as of this encounter Additional Source Comments The information contained in this document represents components of the legal health record. It is not the complete legal health record.[facility]
--- OUTSIDE RECORDS SUMMARY | 2025-08-26 18:26 | XMS_ITS | Encounter Summary ---
Author Organization [facility] Address [address] [place] [address] Phone Care Team Providers Care Retaining Room Cutter Name Role Phone Marita Miguel NP Primary Care Provider [phone] Ana Cullen Primary Care Provider Encounter Details Date Type Department Care Team (Late st Contact Info) Description 04/12/2021 Procedure Pass 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 It is not the complete legal health record.[facility]
--- OUTSIDE RECORDS SUMMARY | 2025-08-26 18:26 | XMS_ITS | Encounter Summary ---
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 Wish to be (Past 1 Month) No 07/14/2021 5:24 PM EDT Briseyda Salmeron RN 2. Non-Specific Active Suicidal Thoughts (Past 1 Month) No 07/14/2021 5:24 PM EDT Briseyda Salmeron, RN 6. Suicidal Behavior (Lifetime) No 07/14/2021 5:24 PM EDT Briseyda Salmeron RN documented as of this encounter Plan [...] documented as of this encounter Care Teams Sales Enablement Manager Relationship Specialty Start Date End Date Marita Miguel NP [address] [place] [address] PCP - General Family Medicine 04/10/21 11/30/22 Ana Cullen PA [address] [place] [address] PCP - General Physician Gyroscopic Instrument Mechanic 12/01/22 documented as of this encounter Additional Source Comments The information contained in this document represents components of the legal health record. It is not the complete legal health record.[facility]
--- OUTSIDE RECORDS SUMMARY | 2025-08-26 18:26 | XMS_ITS | Encounter Summary ---
Author Organization [facility] Address [address] [place], [place] [id number] Phone Care Team Providers Care Environmental Field Professional Name Role Phone Unknown, Unknown Primary Care Provider Pedro Shearer MD Primary Care Provider [phone] Pcp, Unknown Primary Care Provider Marita David NP Primary Care Provider [phone] Ana Cullen Primary Care Provider [phone] Encounter Details Date Type Department Care Team (Late st Contact Info) Description 05/12/2018 Procedure Pass [facility], Ct Scan - [address] [address] Social History Tobacco Use Types Packs/Day Years [...] not to disclose 2018 3:30 PM EST documented as of this encounter Plan of Treatment Not on file documented as of this encounter Visit Diagnoses Not on filedocumented in this encounter Additional Health Concerns Infection Onset Date Last Indicated Resolved Time CoV-Risk Comment:Per note documentation 04/08/2021 04/09/2021 1:35 PM EDT CoV-Presumed Comment:Neg covid 11/14/2022 12/04/2022 12/04/2022 6:[address] CoV-Risk 12/01/2022 12/01/2022 12/02/2022 9:19 AM EST CoV-Risk 12/03/2022 12/03/2022 12/04/2022 6:24 AM EST documented as of this encounter Care Teams Environmental Field Professional Relationship Specialty Start Date End Date Unknown, Unknown, MD PCP - General 05/12/18 08/11/18 Pedro Duncan MD [address] [place] [address] PCP - General Internal Medicine 08/12/18 04/07/21 Pcp, Unknown PCP - General 04/08/21 04/09/21 Marita Miguel NP [address] [place] [address] PCP - General Family Medicine 04/10/21 11/30/22 Ana Cullen PA [address], [address] [place] [id number] PCP - General Physician Special Weapons Unit Officer 12/01/22 documented as of this encounter Additional Source Comments The information contained in this document represents components of the legal health record. It is not the complete legal health record.[facility]
--- OUTSIDE RECORDS SUMMARY | 2025-08-26 18:26 | XMS_ITS | Encounter Summary ---
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 It is not the complete legal health record.[facility]
--- OUTSIDE RECORDS SUMMARY | 2025-08-26 18:26 | XMS_ITS | Patient Health Record ---
Author Organization [facility] [address] Address [address] [place] [address] Care Team Providers Care Credit Review Analyst Name Role Phone Ana Cullen Primary Care Provider Unavailab RAMBO Swann Unavailable [phone] Allergies Allergen (clinical drug ingredient) Drug/Non Drug Allergy documented on EMR Reaction Allergy Type Onset Date Status adhesive tape (uncoded) Unknown Allergy Active amoxicillin / clavulanate Augmentin Unknown Drug Allergy Active sumatriptan Imitrex Unknown Drug Allergy Activ e acetaminophen / oxycodone Percocet Unknown Drug Allergy Active Vicodin Unknown Drug Allergy Active aspirin Aspirin Unknown Drug Allergy Active doxycycline Doxycycline Unknown Drug Allergy Act dai fentanyl fentaNYL Unknown Drug Allergy Active morphine Morphine Unknown Drug Allergy Active prednisone predniSONE Unknown Drug Allergy Activ e Results Component Value Reference Range Notes Comp. Metabolic Panel [id number] Reviewed date:08/11/2025 09:59:49 AM Interpretation: Performing Lab:[facility], [address] [place] [address], [place], Phone - [phone], Director - Hui Notes/Report: Glucose 103 70-99 mg/dL BUN 22 6-24 mg/dL Creatinine 1.08 0.57-1.00 mg/dL eGFR 60 >59 mL/min/1.73 BUN/Creatinine Ratio 20 9-23 Sodium 143 134-144 mmol/L Potassium 4.5 3.5-5.2 mmol/L Chloride 106 96-106 mmol/L Carbon Dioxide, Total 21 20-29 mmol/L Calcium 9.2 8.7-10.2 mg/dL Protein, Total 7.0 6.0-8.5 g/dL Albumin 3.9 3.8-4.9 g/dL Globulin, Total 3.1 1.5-4.5 g/dL Bilirubin, Total 0.3 0.0-1.2 mg/dL Alkaline Phosphatase 103 49-135 IU/L AST (SGOT) 12 0-40 IU/L ALT (SGPT) 11 0-32 IU/L CBC With Differential/Platel et-[id number] Reviewed date:08/11/2025 08:18:01 AM Interpretation: Performing Lab:[facility], [address], [place], Phone - [phone], Director - Hui Notes/Report: WBC 9.7 3.4-10.8 x10E3/uL RBC 4.85 3.77-5.28 x10E6/uL Hemoglobin 13.4 11.1-15.9 g/dL Hematocrit 41.0 34.0-46.6 % MCV 85 79-97 fL MCH 27.6 26.6-33.0 pg MCHC 32.7 31.5-35.7 g/dL RDW 14.2 11.7-15.4 % Platelets 315 150-450 x10E3/uL Neutrophils 59 Not Estab. % Lymphs 31 Not Estab. % Monocytes 7 Not Estab. % Eos 2 Not Estab. % Basos 1 Not Estab. % Neutrophils (Absolute) 5.7 1.4-7.0 x10E3/uL Lymphs (Absolute) 3.0 0.7-3.1 x10E3/uL Monocytes(Absolute) 0.7 0.1-0.9 x10E3/uL Eos (Absolute) 0.2 0.0-0.4 x10E3/uL Baso (Absolute) 0.1 0.0-0.2 x10E3/uL Immature Granulocytes 0 Not Estab. % Immature Grans (Abs) 0.0 0.0-0.1 x10E3/uL Reason For Referral No Information Medications Medication SIG (Take, Route, Frequency, Duration) Notes Start Date End Date Status Wixela Inhub 100-50 MCG/ACT 1 puff Inhalation Twice a day Active Albuterol-Ipratropium Active amLODIPine Besylate 5 MG Oral; Duration: 30 Days Active LORazepam 0.5 MG 1 tablet at bedtime as needed Orally Once a day Active Problems Problem Type SNOMED Code ICD Code Onset Dates Problem Status W/U Status Risk Notes Problem Essential hypertension (22797743) Essential (primary) hypertension (I10) Active confirmed Problem Fibromyalgia (589341231) Fibromyalgia (M79.7) Active confirmed Problem Essential hypertension (93083966) Essential hypertension (I10) Active confirmed Problem Kidney stone (20211694) Kidney stone (N20.0) Active confirmed Problem Thyroid nodule (437374610) Thyroid nodule (E04.1) Active confirmed Problem Body mass index 40+ - morbidly obese (695075217) BMI 40.0-44.9, adult (Z68.41) Active confirmed Problem Chronic kidney disease stage 3 (disorder) (250987482) Chronic kidney disease, stage 3 unspecified (N18.30) Active confirmed Problem Morbid obesity (451446733) Severe obesity (BMI >= 40) (E66.01) Active confirmed Problem Asthma (139186548) Asthma (J45.909) Active confirmed Problem Migraine variant with headache (disorder) (319073326) Migraine headache (G43.909) Active confirmed Vital Signs Heart Rate 78 /min 08/10/2025 Oximetry 98 % 08/10/2025 Blood pressure diastolic 80 mm Hg 08/10/2025 Height 63 in 08/10/2025 Blood pressure systolic 132 mm Hg 08/10/2025 Weight 227.5 lbs 08/10/2025 BMI 40.3 kg/m2 08/10/2025 Encounters Encounter Location Date Provider Diagnosis [facility] [address] [place] [address] 08/10/2025 RAMBO MARY Severe obesity (BMI >= 40) E66.01 ; BMI 40.0-44.9, adult Z68.41 ; Nutritional counseling Z71.3 ; Fibromyalgia M79.7 ; Depressed mood R45.89 ; Essential hypertension I10 and Encounter for examination of blood pressure without abnormal findings Z01.30 [facility] [address] [place] [phone] 08/10/2025 RAMBO MARY Severe obesity (BMI >= 40) E66.[address] [address] [place] [address] 08/12/2025 RAMBO MARY [facility] [address] [place] [address] 08/17/2025 RAMBO MARY [facility] [address] [place] [address] 08/23/2025 RAMBO HERNANDEZ Assessments Encounter Date Diagnosis (ICD Code) Assessment Notes Treatment Notes Treatment Clinical Notes Section Notes 08/10/2025 BMI 40.0-44.9, adult (ICD-10 - Z68.41) Lupe is a 55-year-old female with a past medical history of a stroke, essential hypertension, asthma, thyroid nodule, kidney stones, CKD stage III, migraine headaches and fibromyalgia who presents to the office today for weight management. MICC given today 08/10/2025: BMI 40.3, weight 227.5 we discussed the risk versus benefits of GLP-1 injections. I am slightly hesitant on prescribing a GLP-1 as patient states that she does not have an appetite. I did speak to patient and tell her that GLP-1 may suppress her appetite even further. She is very adamant about trying a GLP-1 due to the fact that she would like her metabolism to be increased. We did have a discussion that we may try an injection depending on what her blood work says... Will have patient obtain blood work... Will submit for either Zepbound or Wegovy. Patient is adamant about trying Ozempic, I did tell her that we cannot submit this medication as she is not a type II diabetic. We discussed that if they are not approved by insurance and she would have to pay [id number] for the medications. Will update patient depending on insurance determination #CKD stage III: Will be obtaining blood work.. She states that she is unsure of her last creatinine/eGFR. She is hesitant about consuming protein due to her stage III kidney disease and states that she would run our recommendations by urology first. #Essential hypertension: Currently on amlodipine #Thyroid nodule: States that she is being followed by her PCP denies ever having a history of cancer or medullary endocrine neoplasia #Kidney stones: She states that she has a urologist #Migraine headaches: Unsure if patient's migraine regimen #Fibromyalgia: Does follow with her PCP #Anxiety/depression: Follows with her PCP, utilizes lorazepam 0.5 mg as needed We spent a lot of time discussing the relationship between food, exercise, sleep, mental health and obesity. Patient was counseled on the importance EATING local, organic food when possible. Patient was educated on clean 15 and dirty dozen. I provided information about reading books called The Food Rules by Zeus Escobra and Eat Fat Get Lean by Dr Juan Luis Poole. Self education is important in the journey for weight management. Patient was offered diagnostic testing. We want to measure visceral adiposity, advanced body composition, adverse lipids, fatty acid balance, risk for heart disease and atherosclerosis, markers of inflammation and genetic susceptibility. Patient was counseled on weight management and was advised to lose weight using A. Meal Replacement Products Patient was educated on the replacement products called optifast. This is a good way of taking fixed amount of calories. It has been shown in studies to be ineffective weight management tool. This however has to be coupled with lifestyle intervention as well as laboratory data and EKG monitoring. It is impossible to know how a person will tolerate complete meal replacement. The side effects of meal replacement and weight loss could include syncopal attacks, dizziness, gallstones, potential cholecystectomy, possible heart attack and even . The benefits of meal replacement would be potential weight loss but no guarantees can be made. Meal replacement products are not covered by insurance. Once the patient has bought these products we cannot return them B. Lifestyle management which includes several strategies as below 1. Eat a low carbohydrate good fat good protein diet. Eliminate refined carbohydrates from the diet. Continue blood sugar and sugared beverages. Eat local organic when possible. Cook your own meals. Read food labels. None about healthy snacks. Portion control and food with low glycemic index 2. Exercise regularly. Try to get at least 6000 steps a day. Use a predominant to track activity level. Consider using apps like [employer], myfitnesspal, lose it, stick as needed for self-monitoring and weight management. Consider group exercises. Consider hiring a medical management trainer. Regular exercise is garcía to sustainable health and prevents as a buffer against weight regain 3. Sleep is most important for healing. Tried to sleep at least 8 hours a night. A good quality sleep needs a sleep ritual with ideal room temperature of around 68. It might help to take a shower and have no electronics in the room and sleep in a very dark room without artificial light. Start her sleep routine and get up early in the morning and go to bed on time 4. Make a social connection. Surround yourself with positive people with positive energy. Connect with friends and family. 5. Get into the habit of meditating and mindfulness while doing everything. 6. Go outside and connect with nature. C. Prescription medications Patient was educated on the use of prescription medications for medical weight loss. This is a growing list and includes phentermine, Topamax,Qsymia, contrave, belviq and saxenda. All prescription medications could have side effects including but not limited to kidney stones seizure disorder cardiac arrhythmias heart attack pancreatitis etc. etc.. Patient was encouraged to read the prescription insert and have coaching with their pharmacist and make an informed decision about taking medication and know that these medications are being prescribed with good intentions and we do not know how a patient would react to her medication. Sudden medications are FDA approved for weight loss and there is also off label use depending on patient's inability to afford medications in an attempt to lose weight D. Behavioral counseling was done to establish a relationship between food and an mood. Patient was provided information about local counseling including the office of Dr. Alatorre in [place] and Dr Garcia at [facility]. We would like to cover regular topics and build on low glycemic eating exercise mindful eating, using yoga and meditation along with deep breathing and connecting with friends and family. E. Patient's current medications were reviewed and opinion was given on medication that can cause weight gain and can be substituted F. Patient was assessed for risk with obesity including and not limiting to atherosclerosis heart disease stroke kidney disease, restrictive lung disease, irritable bowel syndrome and overall mortality. Risk of developing prediabetes diabetes and metabolic syndrome was discussed G. Therapeutic plan: We have decided to make therapeutic plan which would include choosing wisely on calories restricting portion getting active, tracking weight, getting good quality sleep and working on time management H. Patient will follow up in 4 weeks for weight management Total time spent today was 60 minutes of which greater than 50% was spent on coordinating and counseling All questions have been answered to patient's satisfaction. Patient verbalized understanding of diagnosis and treatments explained. Advised to call sooner prior to next visit it any questions/concerns arise. Case discussed with Dee SIERRA who reviewed the assessment and plan. Chart, medications, labs, vital signs reviewed. Dictation was accomplished with the use of [employer] voice recognition software, which is prone to medical misidentifications and grammatical errors. This are unintentional and the practitioner does try to identify and correct these, but some could still be present. Please do not hesitate to contact practitioner for clarification. 08/10/2025 Severe obesity (BMI >= 40) (ICD-10 - E66.01) Lupe is a 55-year-old female with a past medical history of a stroke, essential hypertension, asthma, thyroid nodule, kidney stones, CKD stage III, migraine headaches and fibromyalgia who presents to the office today for weight management. MICC given today 08/10/2025: BMI 40.3, weight 227.5 we discussed the risk versus benefits of GLP-1 injections. I am slightly hesitant on prescribing a GLP-1 as patient states that she does not have an appetite. I did speak to patient and tell her that GLP-1 may suppress her appetite even further. She is very adamant about trying a GLP-1 due to the fact that she would like her metabolism to be increased. We did have a discussion that we may try an injection depending on what her blood work says... Will have patient obtain blood work... Will submit for either Zepbound or Wegovy. Patient is adamant about trying Ozempic, I did tell her that we cannot submit this medication as she is not a type II diabetic. We discussed that if they are not approved by insurance and she would have to pay [id number] for the medications. Will update patient depending on insurance determination #CKD stage III: Will be obtaining blood work.. She states that she is unsure of her last creatinine/eGFR. She is hesitant about consuming protein due to her stage III kidney disease and states that she would run our recommendations by urology first. #Essential hypertension: Currently on amlodipine #Thyroid nodule: States that she is being followed by her PCP denies ever having a history of cancer or medullary endocrine neoplasia #Kidney stones: She states that she has a urologist #Migraine headaches: Unsure if patient's migraine regimen #Fibromyalgia: Does follow with her PCP #Anxiety/depression: Follows with her PCP, utilizes lorazepam 0.5 mg as needed We spent a lot of time discussing the relationship between food, exercise, sleep, mental health and obesity. Patient was counseled on the importance EATING local, organic food when possible. Patient was educated on clean 15 and dirty dozen. I provided information about reading books called The Food Rules by Zeus Escobar and Eat Fat Get Lean by Dr Juan Luis Poole. Self education is important in the journey for weight management. Patient was offered diagnostic testing. We want to measure visceral adiposity, advanced body composition, adverse lipids, fatty acid balance, risk for heart disease and atherosclerosis, markers of inflammation and genetic susceptibility. Patient was counseled on weight management and was advised to lose weight using A. Meal Replacement Products Patient was educated on the replacement products called optifast. This is a good way of taking fixed amount of calories. It has been shown in studies to be ineffective weight management tool. This however has to be coupled with lifestyle intervention as well as laboratory data and EKG monitoring. It is impossible to know how a person will tolerate complete meal replacement. The side effects of meal replacement and weight loss could include syncopal attacks, dizziness, gallstones, potential cholecystectomy, possible heart attack and even . The benefits of meal replacement would be potential weight loss but no guarantees can be made. Meal replacement products are not covered by insurance. Once the patient has bought these products we cannot return them B. Lifestyle management which includes several strategies as below 1. Eat a low carbohydrate good fat good protein diet. Eliminate refined carbohydrates from the diet. Continue blood sugar and sugared beverages. Eat local organic when possible. Cook your own meals. Read food labels. None about healthy snacks. Portion control and food with low glycemic index 2. Exercise regularly. Try to get at least 6000 steps a day. Use a predominant to track activity level. Consider using apps like [employer], myfitnesspal, lose it, stick as needed for self-monitoring and weight management. Consider group exercises. Consider hiring a medical management trainer. Regular exercise is garcía to sustainable health and prevents as a buffer against weight regain 3. Sleep is most important for healing. Tried to sleep at least 8 hours a night. A good quality sleep needs a sleep ritual with ideal room temperature of around 68. It might help to take a shower and have no electronics in the room and sleep in a very dark room without artificial light. Start her sleep routine and get up early in the morning and go to bed on time 4. Make a social connection. Surround yourself with positive people with positive energy. Connect with friends and family. 5. Get into the habit of meditating and mindfulness while doing everything. 6. Go outside and connect with nature. C. Prescription medications Patient was educated on the use of prescription medications for medical weight loss. This is a growing list and includes phentermine, Topamax,Qsymia, contrave, belviq and saxenda. All prescription medications could have side effects including but not limited to kidney stones seizure disorder cardiac arrhythmias heart attack pancreatitis etc. etc.. Patient was encouraged to read the prescription insert and have coaching with their pharmacist and make an informed decision about taking medication and know that these medications are being prescribed with good intentions and we do not know how a patient would react to her medication. Sudden medications are FDA approved for weight loss and there is also off label use depending on patient's inability to afford medications in an attempt to lose weight D. Behavioral counseling was done to establish a relationship between food and an mood. Patient was provided information about local counseling including the office of Dr. Alatorre in [place] and Dr Garcia at [facility]. We would like to cover regular topics and build on low glycemic eating exercise mindful eating, using yoga and meditation along with deep breathing and connecting with friends and family. E. Patient's current medications were reviewed and opinion was given on medication that can cause weight gain and can be substituted F. Patient was assessed for risk with obesity including and not limiting to atherosclerosis heart disease stroke kidney disease, restrictive lung disease, irritable bowel syndrome and overall mortality. Risk of developing prediabetes diabetes and metabolic syndrome was discussed G. Therapeutic plan: We have decided to make therapeutic plan which would include choosing wisely on calories restricting portion getting active, tracking weight, getting good quality sleep and working on time management H. Patient will follow up in 4 weeks for weight management Total time spent today was 60 minutes of which greater than 50% was spent on coordinating and counseling All questions have been answered to patient's satisfaction. Patient verbalized understanding of diagnosis and treatments explained. Advised to call sooner prior to next visit it any questions/concerns arise. Case discussed with Dee SIERRA who reviewed the assessment and plan. Chart, medications, labs, vital signs reviewed. Dictation was accomplished with the use of [employer] voice recognition software, which is prone to medical misidentifications and grammatical errors. This are unintentional and the practitioner does try to identify and correct these, but some could still be present. Please do not hesitate to contact practitioner for clarification. 08/10/2025 Nutritional counseling (ICD-10 - Z71.3) Lupe is a 55-year-old female with a past medical history of a stroke, essential hypertension, asthma, thyroid nodule, kidney stones, CKD stage III, migraine headaches and fibromyalgia who presents to the office today for weight management. [facility] given today 08/10/2025: BMI 40.3, weight 227.5 we discussed the risk versus benefits of GLP-1 injections. I am slightly hesitant on prescribing a GLP-1 as patient states that she does not have an appetite. I did speak to patient and tell her that GLP-1 may suppress her appetite even further. She is very adamant about trying a GLP-1 due to the fact that she would like her metabolism to be increased. We did have a discussion that we may try an injection depending on what her blood work says... Will have patient obtain blood work... Will submit for either Zepbound or Wegovy. Patient is adamant about trying Ozempic, I did tell her that we cannot submit this medication as she is not a type II diabetic. We discussed that if they are not approved by insurance and she would have to pay [id number] for the medications. Will update patient depending on insurance determination #CKD stage III: Will be obtaining blood work.. She states that she is unsure of her last creatinine/eGFR. She is hesitant about consuming protein due to her stage III kidney disease and states that she would run our recommendations by urology first. #Essential hypertension: Currently on amlodipine #Thyroid nodule: States that she is being followed by her PCP denies ever having a history of cancer or medullary endocrine neoplasia #Kidney stones: She states that she has a urologist #Migraine headaches: Unsure if patient's migraine regimen #Fibromyalgia: Does follow with her PCP #Anxiety/depression: Follows with her PCP, utilizes lorazepam 0.5 mg as needed We spent a lot of time discussing the relationship between food, exercise, sleep, mental health and obesity. Patient was counseled on the importance EATING local, organic food when possible. Patient was educated on clean 15 and dirty dozen. I provided information about reading books called The Food Rules by Zeus Escobar and Eat Fat Get Lean by Dr Juan Luis Poole. Self education is important in the journey for weight management. Patient was offered diagnostic testing. We want to measure visceral adiposity, advanced body composition, adverse lipids, fatty acid balance, risk for heart disease and atherosclerosis, markers of inflammation and genetic susceptibility. Patient was counseled on weight management and was advised to lose weight using A. Meal Replacement Products Patient was educated on the replacement products called optifast. This is a good way of taking fixed amount of calories. It has been shown in studies to be ineffective weight management tool. This however has to be coupled with lifestyle intervention as well as laboratory data and EKG monitoring. It is impossible to know how a person will tolerate complete meal replacement. The side effects of meal replacement and weight loss could include syncopal attacks, dizziness, gallstones, potential cholecystectomy, possible heart attack and even . The benefits of meal replacement would be potential weight loss but no guarantees can be made. Meal replacement products are not covered by insurance. Once the patient has bought these products we cannot return them B. Lifestyle management which includes several strategies as below 1. Eat a low carbohydrate good fat good protein diet. Eliminate refined carbohydrates from the diet. Continue blood sugar and sugared beverages. Eat local organic when possible. Cook your own meals. Read food labels. None about healthy snacks. Portion control and food with low glycemic index 2. Exercise regularly. Try to get at least 6000 steps a day. Use a predominant to track activity level. Consider using apps like [employer], [employer], lose it, stick as needed for self-monitoring and weight management. Consider group exercises. Consider hiring a medical management trainer. Regular exercise is garcía to sustainable health and prevents as a buffer against weight regain 3. Sleep is most important for healing. Tried to sleep at least 8 hours a night. A good quality sleep needs a sleep ritual with ideal room temperature of around 68. It might help to take a shower and have no electronics in the room and sleep in a very dark room without artificial light. Start her sleep routine and get up early in the morning and go to bed on time 4. Make a social connection. Surround yourself with positive people with positive energy. Connect with friends and family. 5. Get into the habit of meditating and mindfulness while doing everything. 6. Go outside and connect with nature. C. Prescription medications Patient was educated on the use of prescription medications for medical weight loss. This is a growing list and includes phentermine, Topamax,Qsymia, contrave, belviq and saxenda. All prescription medications could have side effects including but not limited to kidney stones seizure disorder cardiac arrhythmias heart attack pancreatitis etc. etc.. Patient was encouraged to read the prescription insert and have coaching with their pharmacist and make an informed decision about taking medication and know that these medications are being prescribed with good intentions and we do not know how a patient would react to her medication. Sudden medications are FDA approved for weight loss and there is also off label use depending on patient's inability to afford medications in an attempt to lose weight D. Behavioral counseling was done to establish a relationship between food and an mood. Patient was provided information about local counseling including the office of Dr. Alatorre in [place] and Dr Garcia at [facility]. We would like to cover regular topics and build on low glycemic eating exercise mindful eating, using yoga and meditation along with deep breathing and connecting with friends and family. E. Patient's current medications were reviewed and opinion was given on medication that can cause weight gain and can be substituted F. Patient was assessed for risk with obesity including and not limiting to atherosclerosis heart disease stroke kidney disease, restrictive lung disease, irritable bowel syndrome and overall mortality. Risk of developing prediabetes diabetes and metabolic syndrome was discussed G. Therapeutic plan: We have decided to make therapeutic plan which would include choosing wisely on calories restricting portion getting active, tracking weight, getting good quality sleep and working on time management H. Patient will follow up in 4 weeks for weight management Total time spent today was 60 minutes of which greater than 50% was spent on coordinating and counseling All questions have been answered to patient's satisfaction. Patient verbalized understanding of diagnosis and treatments explained. Advised to call sooner prior to next visit it any questions/concerns arise. Case discussed with Dee SIERRA who reviewed the assessment and plan. Chart, medications, labs, vital signs reviewed. Dictation was accomplished with the use of Yo[employer]o voice recognition software, which is prone to medical misidentifications and grammatical errors. This are unintentional and the practitioner does try to identify and correct these, but some could still be present. Please do not hesitate to contact practitioner for clarification. 08/10/2025 Severe obesity (BMI >= 40) (ICD-10 - E66.01) Electronic Prior Authorization was requested for Zepbound 2.5 MG/0.5ML Solution Auto-injector. Provider can order medication once approval received. Electronic Prior Authorization was requested for Wegovy 0.25 MG/0.5ML Solution Auto-injector. Provider can order medication once approval received. 08/10/2025 Fibromyalgia (ICD-10 - M79.7) Lupe is a 55-year-old female with a past medical history of a stroke, essential hypertension, asthma, thyroid nodule, kidney stones, CKD stage III, migraine headaches and fibromyalgia who presents to the office today for weight management. [facility] given today 08/10/2025: BMI 40.3, weight 227.5 we discussed the risk versus benefits of GLP-1 injections. I am slightly hesitant on prescribing a GLP-1 as patient states that she does not have an appetite. I did speak to patient and tell her that GLP-1 may suppress her appetite even further. She is very adamant about trying a GLP-1 due to the fact that she would like her metabolism to be increased. We did have a discussion that we may try an injection depending on what her blood work says... Will have patient obtain blood work... Will submit for either Zepbound or Wegovy. Patient is adamant about trying Ozempic, I did tell her that we cannot submit this medication as she is not a type II diabetic. We discussed that if they are not approved by insurance and she would have to pay [id number] for the medications. Will update patient depending on insurance determination #CKD stage III: Will be obtaining blood work.. She states that she is unsure of her last creatinine/eGFR. She is hesitant about consuming protein due to her stage III kidney disease and states that she would run our recommendations by urology first. #Essential hypertension: Currently on amlodipine #Thyroid nodule: States that she is being followed by her PCP denies ever having a history of cancer or medullary endocrine neoplasia #Kidney stones: She states that she has a urologist #Migraine headaches: Unsure if patient's migraine regimen #Fibromyalgia: Does follow with her PCP #Anxiety/depression: Follows with her PCP, utilizes lorazepam 0.5 mg as needed We spent a lot of time discussing the relationship between food, exercise, sleep, mental health and obesity. Patient was counseled on the importance EATING local, organic food when possible. Patient was educated on clean 15 and dirty dozen. I provided information about reading books called The Food Rules by Zeus Escobar and Eat Fat Get Lean by Dr Juan Luis Poole. Self education is important in the journey for weight management. Patient was offered diagnostic testing. We want to measure visceral adiposity, advanced body composition, adverse lipids, fatty acid balance, risk for heart disease and atherosclerosis, markers of inflammation and genetic susceptibility. Patient was counseled on weight management and was advised to lose weight using A. Meal Replacement Products Patient was educated on the replacement products called optifast. This is a good way of taking fixed amount of calories. It has been shown in studies to be ineffective weight management tool. This however has to be coupled with lifestyle intervention as well as laboratory data and EKG monitoring. It is impossible to know how a person will tolerate complete meal replacement. The side effects of meal replacement and weight loss could include syncopal attacks, dizziness, gallstones, potential cholecystectomy, possible heart attack and even . The benefits of meal replacement would be potential weight loss but no guarantees can be made. Meal replacement products are not covered by insurance. Once the patient has bought these products we cannot return them B. Lifestyle management which includes several strategies as below 1. Eat a low carbohydrate good fat good protein diet. Eliminate refined carbohydrates from the diet. Continue blood sugar and sugared beverages. Eat local organic when possible. Cook your own meals. Read food labels. None about healthy snacks. Portion control and food with low glycemic index 2. Exercise regularly. Try to get at least 6000 steps a day. Use a predominant to track activity level. Consider using apps like [employer], X-1pal, lose it, stick as needed for self-monitoring and weight management. Consider group exercises. Consider hiring a medical management trainer. Regular exercise is garcía to sustainable health and prevents as a buffer against weight regain 3. Sleep is most important for healing. Tried to sleep at least 8 hours a night. A good quality sleep needs a sleep ritual with ideal room temperature of around 68. It might help to take a shower and have no electronics in the room and sleep in a very dark room without artificial light. Start her sleep routine and get up early in the morning and go to bed on time 4. Make a social connection. Surround yourself with positive people with positive energy. Connect with friends and family. 5. Get into the habit of meditating and mindfulness while doing everything. 6. Go outside and connect with nature. C. Prescription medications Patient was educated on the use of prescription medications for medical weight loss. This is a growing list and includes phentermine, Topamax,Qsymia, contrave, belviq and saxenda. All prescription medications could have side effects including but not limited to kidney stones seizure disorder cardiac arrhythmias heart attack pancreatitis etc. etc.. Patient was encouraged to read the prescription insert and have coaching with their pharmacist and make an informed decision about taking medication and know that these medications are being prescribed with good intentions and we do not know how a patient would react to her medication. Sudden medications are FDA approved for weight loss and there is also off label use depending on patient's inability to afford medications in an attempt to lose weight D. Behavioral counseling was done to establish a relationship between food and an mood. Patient was provided information about local counseling including the office of Dr. Alatorre in [place] and Dr Garcia at [facility]. We would like to cover regular topics and build on low glycemic eating exercise mindful eating, using yoga and meditation along with deep breathing and connecting with friends and family. E. Patient's current medications were reviewed and opinion was given on medication that can cause weight gain and can be substituted F. Patient was assessed for risk with obesity including and not limiting to atherosclerosis heart disease stroke kidney disease, restrictive lung disease, irritable bowel syndrome and overall mortality. Risk of developing prediabetes diabetes and metabolic syndrome was discussed G. Therapeutic plan: We have decided to make therapeutic plan which would include choosing wisely on calories restricting portion getting active, tracking weight, getting good quality sleep and working on time management H. Patient will follow up in 4 weeks for weight management Total time spent today was 60 minutes of which greater than 50% was spent on coordinating and counseling All questions have been answered to patient's satisfaction. Patient verbalized understanding of diagnosis and treatments explained. Advised to call sooner prior to next visit it any questions/concerns arise. Case discussed with Dee SIERRA who reviewed the assessment and plan. Chart, medications, labs, vital signs reviewed. Dictation was accomplished with the use of [employer] voice recognition software, which is prone to medical misidentifications and grammatical errors. This are unintentional and the practitioner does try to identify and correct these, but some could still be present. Please do not hesitate to contact practitioner for clarification. 08/10/2025 Depressed mood (ICD-10 - R45.89) Lupe is a 55-year-old female with a past medical history of a stroke, essential hypertension, asthma, thyroid nodule, kidney stones, CKD stage III, migraine headaches and fibromyalgia who presents to the office today for weight management. [facility] given today 08/10/2025: BMI 40.3, weight 227.5 we discussed the risk versus benefits of GLP-1 injections. I am slightly hesitant on prescribing a GLP-1 as patient states that she does not have an appetite. I did speak to patient and tell her that GLP-1 may suppress her appetite even further. She is very adamant about trying a GLP-1 due to the fact that she would like her metabolism to be increased. We did have a discussion that we may try an injection depending on what her blood work says... Will have patient obtain blood work... Will submit for either Zepbound or Wegovy. Patient is adamant about trying Ozempic, I did tell her that we cannot submit this medication as she is not a type II diabetic. We discussed that if they are not approved by insurance and she would have to pay [id number] for the medications. Will update patient depending on insurance determination #CKD stage III: Will be obtaining blood work.. She states that she is unsure of her last creatinine/eGFR. She is hesitant about consuming protein due to her stage III kidney disease and states that she would run our recommendations by urology first. #Essential hypertension: Currently on amlodipine #Thyroid nodule: States that she is being followed by her PCP denies ever having a history of cancer or medullary endocrine neoplasia #Kidney stones: She states that she has a urologist #Migraine headaches: Unsure if patient's migraine regimen #Fibromyalgia: Does follow with her PCP #Anxiety/depression: Follows with her PCP, utilizes lorazepam 0.5 mg as needed We spent a lot of time discussing the relationship between food, exercise, sleep, mental health and obesity. Patient was counseled on the importance EATING local, organic food when possible. Patient was educated on clean 15 and dirty dozen. I provided information about reading books called The Food Rules by Zeus Escobar and Eat Fat Get Lean by Dr Juan Luis Poole. Self education is important in the journey for weight management. Patient was offered diagnostic testing. We want to measure visceral adiposity, advanced body composition, adverse lipids, fatty acid balance, risk for heart disease and atherosclerosis, markers of inflammation and genetic susceptibility. Patient was counseled on weight management and was advised to lose weight using A. Meal Replacement Products Patient was educated on the replacement products called optifast. This is a good way of taking fixed amount of calories. It has been shown in studies to be ineffective weight management tool. This however has to be coupled with lifestyle intervention as well as laboratory data and EKG monitoring. It is impossible to know how a person will tolerate complete meal replacement. The side effects of meal replacement and weight loss could include syncopal attacks, dizziness, gallstones, potential cholecystectomy, possible heart attack and even . The benefits of meal replacement would be potential weight loss but no guarantees can be made. Meal replacement products are not covered by insurance. Once the patient has bought these products we cannot return them B. Lifestyle management which includes several strategies as below 1. Eat a low carbohydrate good fat good protein diet. Eliminate refined carbohydrates from the diet. Continue blood sugar and sugared beverages. Eat local organic when possible. Cook your own meals. Read food labels. None about healthy snacks. Portion control and food with low glycemic index 2. Exercise regularly. Try to get at least 6000 steps a day. Use a predominant to track activity level. Consider using apps like [employer], myfitHoverWindpal, lose it, stick as needed for self-monitoring and weight management. Consider group exercises. Consider hiring a medical management trainer. Regular exercise is garcía to sustainable health and prevents as a buffer against weight regain 3. Sleep is most important for healing. Tried to sleep at least 8 hours a night. A good quality sleep needs a sleep ritual with ideal room temperature of around 68. It might help to take a shower and have no electronics in the room and sleep in a very dark room without artificial light. Start her sleep routine and get up early in the morning and go to bed on time 4. Make a social connection. Surround yourself with positive people with positive energy. Connect with friends and family. 5. Get into the habit of meditating and mindfulness while doing everything. 6. Go outside and connect with nature. C. Prescription medications Patient was educated on the use of prescription medications for medical weight loss. This is a growing list and includes phentermine, Topamax,Qsymia, contrave, belviq and saxenda. All prescription medications could have side effects including but not limited to kidney stones seizure disorder cardiac arrhythmias heart attack pancreatitis etc. etc.. Patient was encouraged to read the prescription insert and have coaching with their pharmacist and make an informed decision about taking medication and know that these medications are being prescribed with good intentions and we do not know how a patient would react to her medication. Sudden medications are FDA approved for weight loss and there is also off label use depending on patient's inability to afford medications in an attempt to lose weight D. Behavioral counseling was done to establish a relationship between food and an mood. Patient was provided information about local counseling including the office of Dr. Alatorre in [place] and Dr Garcia at [facility]. We would like to cover regular topics and build on low glycemic eating exercise mindful eating, using yoga and meditation along with deep breathing and connecting with friends and family. E. Patient's current medications were reviewed and opinion was given on medication that can cause weight gain and can be substituted F. Patient was assessed for risk with obesity including and not limiting to atherosclerosis heart disease stroke kidney disease, restrictive lung disease, irritable bowel syndrome and overall mortality. Risk of developing prediabetes diabetes and metabolic syndrome was discussed G. Therapeutic plan: We have decided to make therapeutic plan which would include choosing wisely on calories restricting portion getting active, tracking weight, getting good quality sleep and working on time management H. Patient will follow up in 4 weeks for weight management Total time spent today was 60 minutes of which greater than 50% was spent on coordinating and counseling All questions have been answered to patient's satisfaction. Patient verbalized understanding of diagnosis and treatments explained. Advised to call sooner prior to next visit it any questions/concerns arise. Case discussed with Dee SIERRA who reviewed the assessment and plan. Chart, medications, labs, vital signs reviewed. Dictation was accomplished with the use of [employer] voice recognition software, which is prone to medical misidentifications and grammatical errors. This are unintentional and the practitioner does try to identify and correct these, but some could still be present. Please do not hesitate to contact practitioner for clarification. 08/10/2025 Essential hypertension (ICD-10 - I10) Lupe is a 55-year-old female with a past medical history of a stroke, essential hypertension, asthma, thyroid nodule, kidney stones, CKD stage III, migraine headaches and fibromyalgia who presents to the office today for weight management. [facility] given today 08/10/2025: BMI 40.3, weight 227.5 we discussed the risk versus benefits of GLP-1 injections. I am slightly hesitant on prescribing a GLP-1 as patient states that she does not have an appetite. I did speak to patient and tell her that GLP-1 may suppress her appetite even further. She is very adamant about trying a GLP-1 due to the fact that she would like her metabolism to be increased. We did have a discussion that we may try an injection depending on what her blood work says... Will have patient obtain blood work... Will submit for either Zepbound or Wegovy. Patient is adamant about trying Ozempic, I did tell her that we cannot submit this medication as she is not a type II diabetic. We discussed that if they are not approved by insurance and she would have to pay [id number] for the medications. Will update patient depending on insurance determination #CKD stage III: Will be obtaining blood work.. She states that she is unsure of her last creatinine/eGFR. She is hesitant about consuming protein due to her stage III kidney disease and states that she would run our recommendations by urology first. #Essential hypertension: Currently on amlodipine #Thyroid nodule: States that she is being followed by her PCP denies ever having a history of cancer or medullary endocrine neoplasia #Kidney stones: She states that she has a urologist #Migraine headaches: Unsure if patient's migraine regimen #Fibromyalgia: Does follow with her PCP #Anxiety/depression: Follows with her PCP, utilizes lorazepam 0.5 mg as needed We spent a lot of time discussing the relationship between food, exercise, sleep, mental health and obesity. Patient was counseled on the importance EATING local, organic food when possible. Patient was educated on clean 15 and dirty dozen. I provided information about reading books called The Food Rules by Zeus Escobar and Eat Fat Get Lean by Dr Juan Luis Poole. Self education is important in the journey for weight management. Patient was offered diagnostic testing. We want to measure visceral adiposity, advanced body composition, adverse lipids, fatty acid balance, risk for heart disease and atherosclerosis, markers of inflammation and genetic susceptibility. Patient was counseled on weight management and was advised to lose weight using A. Meal Replacement Products Patient was educated on the replacement products called optifast. This is a good way of taking fixed amount of calories. It has been shown in studies to be ineffective weight management tool. This however has to be coupled with lifestyle intervention as well as laboratory data and EKG monitoring. It is impossible to know how a person will tolerate complete meal replacement. The side effects of meal replacement and weight loss could include syncopal attacks, dizziness, gallstones, potential cholecystectomy, possible heart attack and even . The benefits of meal replacement would be potential weight loss but no guarantees can be made. Meal replacement products are not covered by insurance. Once the patient has bought these products we cannot return them B. Lifestyle management which includes several strategies as below 1. Eat a low carbohydrate good fat good protein diet. Eliminate refined carbohydrates from the diet. Continue blood sugar and sugared beverages. Eat local organic when possible. Cook your own meals. Read food labels. None about healthy snacks. Portion control and food with low glycemic index 2. Exercise regularly. Try to get at least 6000 steps a day. Use a predominant to track activity level. Consider using apps like [employer], MyEveTab, lose it, stick as needed for self-monitoring and weight management. Consider group exercises. Consider hiring a medical management trainer. Regular exercise is garcía to sustainable health and prevents as a buffer against weight regain 3. Sleep is most important for healing. Tried to sleep at least 8 hours a night. A good quality sleep needs a sleep ritual with ideal room temperature of around 68. It might help to take a shower and have no electronics in the room and sleep in a very dark room without artificial light. Start her sleep routine and get up early in the morning and go to bed on time 4. Make a social connection. Surround yourself with positive people with positive energy. Connect with friends and family. 5. Get into the habit of meditating and mindfulness while doing everything. 6. Go outside and connect with nature. C. Prescription medications Patient was educated on the use of prescription medications for medical weight loss. This is a growing list and includes phentermine, Topamax,Qsymia, contrave, belviq and saxenda. All prescription medications could have side effects including but not limited to kidney stones seizure disorder cardiac arrhythmias heart attack pancreatitis etc. etc.. Patient was encouraged to read the prescription insert and have coaching with their pharmacist and make an informed decision about taking medication and know that these medications are being prescribed with good intentions and we do not know how a patient would react to her medication. Sudden medications are FDA approved for weight loss and there is also off label use depending on patient's inability to afford medications in an attempt to lose weight D. Behavioral counseling was done to establish a relationship between food and an mood. Patient was provided information about local counseling including the office of Dr. Alatorre in [place] and Dr Garcia at [facility]. We would like to cover regular topics and build on low glycemic eating exercise mindful eating, using yoga and meditation along with deep breathing and connecting with friends and family. E. Patient's current medications were reviewed and opinion was given on medication that can cause weight gain and can be substituted F. Patient was assessed for risk with obesity including and not limiting to atherosclerosis heart disease stroke kidney disease, restrictive lung disease, irritable bowel syndrome and overall mortality. Risk of developing prediabetes diabetes and metabolic syndrome was discussed G. Therapeutic plan: We have decided to make therapeutic plan which would include choosing wisely on calories restricting portion getting active, tracking weight, getting good quality sleep and working on time management H. Patient will follow up in 4 weeks for weight management Total time spent today was 60 minutes of which greater than 50% was spent on coordinating and counseling All questions have been answered to patient's satisfaction. Patient verbalized understanding of diagnosis and treatments explained. Advised to call sooner prior to next visit it any questions/concerns arise. Case discussed with Dee SIERRA who reviewed the assessment and plan. Chart, medications, labs, vital signs reviewed. Dictation was accomplished with the use of YoBucko voice recognition software, which is prone to medical misidentifications and grammatical errors. This are unintentional and the practitioner does try to identify and correct these, but some could still be present. Please do not hesitate to contact practitioner for clarification. 08/10/2025 Encounter for examination of blood pressure without abnormal findings (ICD-10 - Z01.30) Lupe is a 55-year-old female with a past medical history of a stroke, essential hypertension, asthma, thyroid nodule, kidney stones, CKD stage III, migraine headaches and fibromyalgia who presents to the office today for weight management. MICC given today 08/10/2025: BMI 40.3, weight 227.5 we discussed the risk versus benefits of GLP-1 injections. I am slightly hesitant on prescribing a GLP-1 as patient states that she does not have an appetite. I did speak to patient and tell her that GLP-1 may suppress her appetite even further. She is very adamant about trying a GLP-1 due to the fact that she would like her metabolism to be increased. We did have a discussion that we may try an injection depending on what her blood work says... Will have patient obtain blood work... Will submit for either Zepbound or Wegovy. Patient is adamant about trying Ozempic, I did tell her that we cannot submit this medication as she is not a type II diabetic. We discussed that if they are not approved by insurance and she would have to pay [id number] for the medications. Will update patient depending on insurance determination #CKD stage III: Will be obtaining blood work.. She states that she is unsure of her last creatinine/eGFR. She is hesitant about consuming protein due to her stage III kidney disease and states that she would run our recommendations by urology first. #Essential hypertension: Currently on amlodipine #Thyroid nodule: States that she is being followed by her PCP denies ever having a history of cancer or medullary endocrine neoplasia #Kidney stones: She states that she has a urologist #Migraine headaches: Unsure if patient's migraine regimen #Fibromyalgia: Does follow with her PCP #Anxiety/depression: Follows with her PCP, utilizes lorazepam 0.5 mg as needed We spent a lot of time discussing the relationship between food, exercise, sleep, mental health and obesity. Patient was counseled on the importance EATING local, organic food when possible. Patient was educated on clean 15 and dirty dozen. I provided information about reading books called The Food Rules by Zeus Escobar and Eat Fat Get Lean by Dr Juan Luis Poole. Self education is important in the journey for weight management. Patient was offered diagnostic testing. We want to measure visceral adiposity, advanced body composition, adverse lipids, fatty acid balance, risk for heart disease and atherosclerosis, markers of inflammation and genetic susceptibility. Patient was counseled on weight management and was advised to lose weight using A. Meal Replacement Products Patient was educated on the replacement products called optifast. This is a good way of taking fixed amount of calories. It has been shown in studies to be ineffective weight management tool. This however has to be coupled with lifestyle intervention as well as laboratory data and EKG monitoring. It is impossible to know how a person will tolerate complete meal replacement. The side effects of meal replacement and weight loss could include syncopal attacks, dizziness, gallstones, potential cholecystectomy, possible heart attack and even . The benefits of meal replacement would be potential weight loss but no guarantees can be made. Meal replacement products are not covered by insurance. Once the patient has bought these products we cannot return them B. Lifestyle management which includes several strategies as below 1. Eat a low carbohydrate good fat good protein diet. Eliminate refined carbohydrates from the diet. Continue blood sugar and sugared beverages. Eat local organic when possible. Cook your own meals. Read food labels. None about healthy snacks. Portion control and food with low glycemic index 2. Exercise regularly. Try to get at least 6000 steps a day. Use a predominant to track activity level. Consider using apps like [employer], X-1pal, lose it, stick as needed for self-monitoring and weight management. Consider group exercises. Consider hiring a medical management trainer. Regular exercise is garcía to sustainable health and prevents as a buffer against weight regain 3. Sleep is most important for healing. Tried to sleep at least 8 hours a night. A good quality sleep needs a sleep ritual with ideal room temperature of around 68. It might help to take a shower and have no electronics in the room and sleep in a very dark room without artificial light. Start her sleep routine and get up early in the morning and go to bed on time 4. Make a social connection. Surround yourself with positive people with positive energy. Connect with friends and family. 5. Get into the habit of meditating and mindfulness while doing everything. 6. Go outside and connect with nature. C. Prescription medications Patient was educated on the use of prescription medications for medical weight loss. This is a growing list and includes phentermine, Topamax,Qsymia, contrave, belviq and saxenda. All prescription medications could have side effects including but not limited to kidney stones seizure disorder cardiac arrhythmias heart attack pancreatitis etc. etc.. Patient was encouraged to read the prescription insert and have coaching with their pharmacist and make an informed decision about taking medication and know that these medications are being prescribed with good intentions and we do not know how a patient would react to her medication. Sudden medications are FDA approved for weight loss and there is also off label use depending on patient's inability to afford medications in an attempt to lose weight D. Behavioral counseling was done to establish a relationship between food and an mood. Patient was provided information about local counseling including the office of Dr. Alatorre in [place] and Dr Garcia at [facility]. We would like to cover regular topics and build on low glycemic eating exercise mindful eating, using yoga and meditation along with deep breathing and connecting with friends and family. E. Patient's current medications were reviewed and opinion was given on medication that can cause weight gain and can be substituted F. Patient was assessed for risk with obesity including and not limiting to atherosclerosis heart disease stroke kidney disease, restrictive lung disease, irritable bowel syndrome and overall mortality. Risk of developing prediabetes diabetes and metabolic syndrome was discussed G. Therapeutic plan: We have decided to make therapeutic plan which would include choosing wisely on calories restricting portion getting active, tracking weight, getting good quality sleep and working on time management H. Patient will follow up in 4 weeks for weight management Total time spent today was 60 minutes of which greater than 50% was spent on coordinating and counseling All questions have been answered to patient's satisfaction. Patient verbalized understanding of diagnosis and treatments explained. Advised to call sooner prior to next visit it any questions/concerns arise. Case discussed with Dee SIERRA who reviewed the assessment and plan. Chart, medications, labs, vital signs reviewed. Dictation was accomplished with the use of YoBucko voice recognition software, which is prone to medical misidentifications and grammatical errors. This are unintentional and the practitioner does try to identify and correct these, but some could still be present. Please do not hesitate to contact practitioner for clarification. Plan Of Treatment Pending Test Test Name Order Date COMPREHENSIVE METABOLIC PANEL 08/10/2025 CBC (INCLUDES DIFF/PLT) 08/10/2025 Next Appt Details Provider Name:RAMBO TAYLORR, 03:00:00 PM, [address], [place], [address], Insurance Providers Payer Name Payer Address Payer Phone Subscriber Number Group Number Insured Name Patient Relationship to Insured Coverage Start Date Coverage End Date Blue Benefits Admin [address] [address] [place] [address] [phone] [id number] Lupe Gonzales Self - patient is the insured Medications Administered Medication Instructions Date of Administration Dosage Notes [facility] B12 INJECTION 08/10/2025 1 mL Medical (General) History Medical History History ICD Code stroke Essential (primary) hypertension I10 Asthma J45.909 Thyroid nodule E04.1 Kidney stone N20.0 Chronic kidney disease, stage 3 unspecif ied N18.30 Migraine headache G43.909 Fibromyalgia M79.7 Surgical History Surgery Date(Month/Year) hysterectomy kidney stones
== END 2025-08-26 16:17 | disposition home or self-care (01) ==
LOC: HO.MAMMO 16:16
PROVIDERS: PCP Physician Assistant Medical; Visit Provider Physician Assistant Medical
DX: Z12.31 Encounter for screening mammogram for malignant neoplasm of breast (principal)
CPT/HCPCS: 77063; 77067

== ENCOUNTER → 2025-08-26 16:30 | Outpatient (BNV) | payer OTHER, SELFPAY | PROVIDERS: PCP Physician Assistant Medical; Visit Provider Internal Medicine | DX: Z12.31 Encounter for screening mammogram for malignant neoplasm of breast (principal) | CPT/HCPCS: 77063; 77067 ==

== ENCOUNTER 2025-09-08 13:17 | Outpatient (REF) | payer OTHER, SELFPAY ==
--- OUTSIDE RECORDS SUMMARY | 2025-07-13 07:15 | XMS_ITS ---
Author Organization [facility] [address] Address [address] [place] [address] Care Team Providers Care Carpet Mechanic Name Role Phone Ana Cullen Primary Care Provider Unavailab RAMBO Swann Unavailable [phone] REASON FOR VISIT Requesting Ozempic but not Diabetic. I did go over the requirements for Ozempics with her and she is aware she must have DM Encounters Encounter Location Date Provider Diagnosis [facility] [address] [place] [address] 07/13/2025 RAMBO HERNANDEZ Plan Of Treatment Next Appt Details Provider Name:RAMBO HERNANDEZ, 03:00:00 PM, [address] [facility], [place], [address], Progress Notes * VERITOSerenaeDOB: [birth year] (55 yo F)Acc No.[id number]:07/13/2025 Patient: Tamia LUZ Lupe Provider: Mateusz HERNANDEZ PA-C :1970 A ge:55 Y S ex:Female Date:07/13/2025 Address:[address] [place], [place] Pcp:Ana Cullen Subjective: * Chief Complaints: * 1 . Requesting Ozempic but not Diabetic. I did go over the requirements for Ozempics with her and she is aware she must have DM. * Medical History: Objective: * Vitals: Assessment: Plan: * Treatment: * Images: Billing Information: * Visit Code: * Procedure Codes: * Electronic signature of JOEL HERNANDEZ PA-C on 09/08/2025 at 04:13 PM EDT Sign off status: Pending * Provider: Mateusz HERNANDEZ PA-C Date: 0 07/13/2025 Generated for Stephen masterson/Chandler/Jovanny on: 1 04:13 PM EDT
--- NOTE | ~2025-09-08 | US_ITS ---
EXAMINATION: US DIAGNOSTIC ULTRASOUND BREAST, RIGHT CLINICAL INFORMATION: Recent negative mammogram August 26, 2025. Patient had new palpable lump right upper outer quadrant 11:00 which is also painful.. COMPARISON: Comparison is made with relevant prior imaging. TECHNIQUE: Ultrasound of the breast is performed with real-time phillips scale imaging and color Doppler. FINDINGS: Targeted color Doppler ultrasound scanning in the right breast from 10-2 o'clock in the area of the patient's palpable lump and pain demonstrates normal fibronodular breast tissue. There is no sonographic abnormal finding. Results are discussed with the patient at time of visit. US/US Breast RT Limited Mamm Only IMPRESSION: No sonographic finding to account for the patient's right breast palpable lump. Recent mammography was negative. Recommend clinical evaluation follow-up. ASSESSMENT: BI-RADS 1: Negative RECOMMENDATION: Recommend clinical evaluation and followup This patient's information was entered into a reminder system with a target due date for their next mammogram. Electronically signed by: Manuela Lynch DO 09/08/2025 02:17 PM EDT
--- OUTSIDE RECORDS SUMMARY | 2025-09-08 16:14 | XMS_ITS | Patient Health Record ---
Author Organization [facility] [address] Address [address] [place] [address] Care Team Providers Care Information Engineer Name Role Phone Ana Cullen Primary Care Provider Unavailab RAMBO Swann Unavailable [phone] Allergies Allergen (clinical drug ingredient) Drug/Non Drug [...] Reference Range Notes Comp. Metabolic Panel [id number] Reviewed date:08/11/2025 09:59:49 AM Interpretation: Performing Lab:[facility], [address] [place] [address], [place], Phone - [phone], Director - Hui Notes/Report: Glucose 103 70-99 [...] (SGPT) 11 0-32 IU/L CBC With Differential/Platel et-[id number] Reviewed date:08/11/2025 08:18:01 AM Interpretation: Performing Lab:[facility], [address], [place], Phone - [phone], Director - Hui Notes/Report: WBC 9.7 3.4-10.8 [...] W/U Status Risk Notes Problem Essential hypertension (48249892) Essential (primary) hypertension (I10) Active confirmed Problem Fibromyalgia (837536043) Fibromyalgia (M79.7) Active confirmed Problem Essential hypertension (09903154) Essential hypertension (I10) Active confirmed Problem Kidney stone (36407425) Kidney stone (N20.0) Active confirmed Problem Thyroid nodule (049568552) Thyroid nodule (E04.1) Active confirmed Problem Body mass index 40+ - morbidly obese (227653420) BMI 40.0-44.9, adult (Z68.41) Active confirmed Problem Chronic kidney disease stage 3 (disorder) (318064694) Chronic kidney disease, stage 3 unspecified (N18.30) Active confirmed Problem Morbid obesity (912591852) Severe obesity (BMI >= 40) (E66.01) Active confirmed Problem Asthma (943050373) Asthma (J45.909) Active confirmed Problem Migraine variant with headache (disorder) (170993556) Migraine headache (G43.909) Active confirmed Vital Signs Heart Rate 78 /min 08/10/2025 Oximetry 98 % 08/10/2025 Blood pressure diastolic 80 mm Hg 08/10/2025 Height 63 in 08/10/2025 Blood pressure systolic 132 mm Hg 08/10/2025 Weight 227.5 lbs 08/10/2025 BMI 40.3 kg/m2 08/10/2025 Encounters Encounter Location Date Provider Diagnosis [facility] [address] [place] [address] 08/10/2025 RAMBO MARY Severe obesity (BMI >= 40) E66.01 ; BMI 40.0-44.9, adult Z68.41 ; Nutritional counseling Z71.3 ; Fibromyalgia M79.7 ; Depressed mood R45.89 ; Essential hypertension I10 and Encounter for examination of blood pressure without abnormal findings Z01.30 [facility] [address] [place] [id number] 08/10/2025 RAMBO MARY Severe obesity (BMI >= 40) E66.[address] [address] [place] [address] 08/12/2025 RAMBO MARY [facility] [address] [place] [address] 08/17/2025 RAMBO MARY [facility] [address] [place] [address] 08/23/2025 RAMBO HERNANDEZ Assessments Encounter Date Diagnosis [...] insurance and she would have to pay [id number] for the medications. Will update patient depending [...] track activity level. Consider using apps like [employer]ly, myfitnesspal, lose it, stick as needed for self-monitoring and weight management. Consider group exercises. Consider hiring a personalized living assistant. Regular exercise is garcía to sustainable health [...] including the office of Dr. Alatorre in [place] and Dr Garcia at [place]. We would like to cover regular topics [...] Dictation was accomplished with the use of [employer] voice recognition software, which is prone to [...] insurance and she would have to pay [id number] for the medications. Will update patient depending [...] track activity level. Consider using apps like [employer], myfitnesspal, lose it, stick as needed for self-monitoring and weight management. Consider group exercises. Consider hiring a personalized living assistant. Regular exercise is garcía to sustainable health [...] including the office of Dr. Alatorre in [place] and Dr Garcia at [facility]. We would like to cover regular topics [...] Dictation was accomplished with the use of [employer] voice recognition software, which is prone to [...] to the office today for weight management. [facility] given today 08/10/2025: BMI 40.3, weight [...] insurance and she would have to pay [id number] for the medications. Will update patient depending [...] track activity level. Consider using apps like Adly, myfitG2Linkpal, lose it, stick as needed for self-monitoring and weight management. Consider group exercises. Consider hiring a personalized living assistant. Regular exercise is garcía to sustainable health [...] including the office of Dr. Alatorre in [place] and Dr Garcia at [facility]. We would like to cover regular topics [...] Dictation was accomplished with the use of [employer] voice recognition software, which is prone to [...] to the office today for weight management. [facility] given today 08/10/2025: BMI 40.3, weight [...] insurance and she would have to pay [id number] for the medications. Will update patient depending [...] track activity level. Consider using apps like Adly, Flowitypal, lose it, stick as needed for self-monitoring and weight management. Consider group exercises. Consider hiring a personalized living assistant. Regular exercise is garcía to sustainable health [...] including the office of Dr. Alatorre in [place] and Dr Garcia at [facility]. We would like to cover regular topics [...] Dictation was accomplished with the use of [employer] voice recognition software, which is prone to [...] to the office today for weight management. [facility] given today 08/10/2025: BMI 40.3, weight [...] insurance and she would have to pay [id number]-nxvnee for the medications. Will update patient depending [...] track activity level. Consider using apps like Adly, myfitG2Linkpal, lose it, stick as needed for self-monitoring and weight management. Consider group exercises. Consider hiring a personalized living assistant. Regular exercise is garcía to sustainable health [...] including the office of Dr. Alatorre in [place] and Dr Garcia at [facility]. We would like to cover regular topics [...] Dictation was accomplished with the use of [employer] voice recognition software, which is prone to [...] insurance and she would have to pay [id number] for the medications. Will update patient depending [...] track activity level. Consider using apps like Adly, [employer], lose it, stick as needed for self-monitoring and weight management. Consider group exercises. Consider hiring a personalized living assistant. Regular exercise is garcía to sustainable health [...] including the office of Dr. Alatorre in [place] and Dr Garcia at [facility]. We would like to cover regular topics [...] Dictation was accomplished with the use of [employer] voice recognition software, which is prone to [...] insurance and she would have to pay oxy-sn-oddtis for the medications. Will update patient depending [...] track activity level. Consider using apps like Adly, Flowitypal, lose it, stick as needed for self-monitoring and weight management. Consider group exercises. Consider hiring a personalized living assistant. Regular exercise is garcía to sustainable health [...] including the office of Dr. Alatorre in [place] and Dr Garcia at [facility]. We would like to cover regular topics [...] Dictation was accomplished with the use of [employer] voice recognition software, which is prone to [...] Name:RAMBO TAYLORR, 03:00:00 PM, [address], [place], [address], Insurance Providers Payer Name Payer Address Payer Phone Subscriber Number Group Number Insured Name Patient Relationship to Insured Coverage Start Date Coverage End Date Blue Benefits Admin [address] [address] [place] [address] [id number] Lupe Gonzales Self - patient is the insured Medications Administered Medication Instructions Date of Administration Dosage Notes [facility] B12 INJECTION 08/10/2025 1 mL Medical (General) History Medical History History ICD Code stroke Essential (primary) hypertension I10 Asthma J45.909 Thyroid nodule E04.1 Kidney stone N20.0 Chronic kidney disease, stage 3 unspecif ied N18.30 Migraine headache G43.909 Fibromyalgia M79.7 Surgical History Surgery Date(Month/Year) hysterectomy kidney stones
--- OUTSIDE RECORDS SUMMARY | 2025-09-08 16:14 | XMS_ITS | Clinical Summary ---
Author Organization [facility] Address [address] [place] [address] Phone Care Team Providers Care Fine Grader Name Role Phone Ana Cullen Primary Care Provider [phone] Allergies Active Allergy Reactions Criticality Noted Date [...] received care generally from Dr. Lu in [place] but most recently in [place]. There was some insurance issues interfering with [...] in following up with Dr. 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 on file Not on file [...] Devices Not on file Insurance O INDEMNITY [facility] [employer] [place] IN[employer]MNITY [employer] [place] [employer] IN[employer]MN[employer] [place] [employer] IN[employer]ITY [employer] [place] [employer] INDEMNITY [employer] BENEFITS ADMINISTRATORS O INDEMNITY BLUE [facility] BENEFITS ADMINISTRATORS Advance Directives For more information, please contact: [phone] (9AM - 5PM Radha/New_Vera, Friday-Friday) * Full Code (Latest Code Status on File) Date Activated Date Inactivated Comments 12/01/2022 10:15 PM Question Answer Comments Code Status Confirmed With: Patient * Full Code Date Activated Date Inactivated Comments 04/09/2021 2:00 AM 12/01/2022 10:15 PM Question Answer Comments Code Status Confirmed With: Patient Care Teams Fine Grader Relationship Specialty Start Date End Date Ana Cullen PA [address], [address] [address] PCP - General Physician Acute Care Certified Nursing Assistant 12/01/22 Additional Source Comments The information contained in this document represents components of the legal health record. It is not the complete legal health record.[facility]
--- OUTSIDE RECORDS SUMMARY | 2025-09-08 16:14 | XMS_ITS | Encounter Summary ---
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 Not on file Not on fi le documented as of this encounter Functional Status * Calculated C-SSRS Risk Score (Lifetime/Recent) Answer Date of Assessment Author No Risk Indicated 12/01/2022 2:54 PM EST Nan Bryson, MELISSA * [place] Suicide Severity Rating Scale (Screener/Recent Self-Report) Question [...] documented as of this encounter Care Teams Kitchen Utility Associate Relationship Specialty Start Date End Date Ana Cullen PA [address] [place] [address] [place] [address] PCP - General Physician Student Liaison Officer 12/01/22 documented as of this encounter Additional Source Comments The information contained in this document represents components of the legal health record. It is not the complete legal health record.[facility]
--- OUTSIDE RECORDS SUMMARY | 2025-09-08 16:14 | XMS_ITS | Encounter Summary ---
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 It is not the complete legal health record.[facility]
--- OUTSIDE RECORDS SUMMARY | 2025-09-08 16:14 | XMS_ITS | Encounter Summary ---
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 Not on file Not on fi le documented as of this encounter Functional Status * Calculated C-SSRS Risk Score (Lifetime/Recent) Answer Date of Assessment Author No Risk Indicated 12/19/2021 2:35 PM Calista Mclain RN * [place] Suicide Severity Rating Scale (Screener/Recent Self-Report) Question [...] documented as of this encounter Care Teams Forepart Reducer Relationship Specialty Start Date End Date Marita Miguel NP [address] [place] [address] PCP - General Family Medicine 04/10/21 11/30/22 Ana Cullen PA [address] [place] [address] PCP - General Physician Temporary Help Agency Referral Clerk 12/01/22 documented as of this encounter Additional Source Comments The information contained in this document represents components of the legal health record. It is not the complete legal health record.[facility]
--- OUTSIDE RECORDS SUMMARY | 2025-09-08 16:14 | XMS_ITS | Encounter Summary ---
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 It is not the complete legal health record.[facility]
--- OUTSIDE RECORDS SUMMARY | 2025-09-08 16:14 | XMS_ITS | Encounter Summary ---
Author Organization 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 It is not the complete legal health record.[facility]
--- OUTSIDE RECORDS SUMMARY | 2025-09-08 16:14 | XMS_ITS | Encounter Summary ---
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 Not on file Not on fi le documented as of this encounter Functional Status * Calculated C-SSRS Risk Score (Lifetime/Recent) Answer Date of Assessment Author No Risk Indicated 07/14/2021 5:24 PM EDT Lisset Mcgill RN * [place] Suicide Severity Rating Scale (Screener/Recent Self-Report) Question [...] documented as of this encounter Care Teams Clinical Administrator Relationship Specialty Start Date End Date Marita Miguel NP [address] [place] [address] PCP - General Family Medicine 04/10/21 11/30/22 Ana Cullen PA [address] [place] [address] PCP - General Physician Field Assistant 12/01/22 documented as of this encounter Additional Source Comments The information contained in this document represents components of the legal health record. It is not the complete legal health record.[facility]
--- OUTSIDE RECORDS SUMMARY | 2025-09-08 16:14 | XMS_ITS | Encounter Summary ---
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 It is not the complete legal health record.[facility]
--- OUTSIDE RECORDS SUMMARY | 2025-09-08 16:14 | XMS_ITS | Encounter Summary ---
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 Not on file Not on fi le documented as of this encounter Functional Status * Calculated C-SSRS Risk Score (Lifetime/Recent) Answer Date of Assessment Author No Risk Indicated 07/23/2021 8:18 PM EDT Sinan Brand RN * [place] Suicide Severity Rating Scale (Screener/Recent Self-Report) Question [...] documented as of this encounter Care Teams Customs Compliance Director Relationship Specialty Start Date End Date Marita Miguel NP [address] [place] [address] PCP - General Family Medicine 04/10/21 11/30/22 Ana Cullen PA [address] [place] [address] PCP - General Physician Circus Hand 12/01/22 documented as of this encounter Additional Source Comments The information contained in this document represents components of the legal health record. It is not the complete legal health record.[facility]
--- OUTSIDE RECORDS SUMMARY | 2025-09-08 16:14 | XMS_ITS | Clinical Summary ---
Author Organization [facility] Address [address] [place] [address] Care Team Providers Care Learning And Development Intern Name Role Phone Ana Cullen Primary Care Provider [phone] Allergies Active Allergy Reactions Criticality Noted Date [...] (1 - 1-dose 75+ series) 2044 Insurance [employer] Care Teams Learning And Development Intern Relationship Specialty Start Date End Date Ana Cullen PCP - General Internal Medicine 02/19/22
--- OUTSIDE RECORDS SUMMARY | 2025-09-08 16:14 | XMS_ITS | Encounter Summary ---
Author Organization [facility] Address [address] [place], [place] [phone] Phone Care Team Providers Care Band Tumbler Name Role Phone Unknown, Unknown Primary Care Provider Pedro Shearer MD Primary Care Provider [phone] Pcp, Unknown Primary Care Provider Marita David NP Primary Care Provider [phone] Ana Cullen Primary Care Provider [phone] Encounter Details Date Type Department Care Team (Late st Contact Info) Description 05/12/2018 Procedure Pass [facility], Ct Scan - [address] [address] Social History Tobacco Use Types Packs/Day Years [...] documented as of this encounter Care Teams Band Tumbler Relationship Specialty Start Date End Date Unknown, Unknown, MD PCP - General 05/12/18 08/11/18 Pedro Duncan MD [address] [place] [address] PCP - General Internal Medicine 08/12/18 04/07/21 Pcp, Unknown PCP - General 04/08/21 04/09/21 Marita Miguel NP [address] [place] [address] PCP - General Family Medicine 04/10/21 11/30/22 Ana Cullen PA [address], [address] [place] [address] PCP - General Physician Medical Record Consultant 12/01/22 documented as of this encounter Additional Source Comments The information contained in this document represents components of the legal health record. It is not the complete legal health record.[facility]
== END 2025-09-08 13:18 | disposition home or self-care (01) ==
LOC: HO.MAMMO 13:17
PROVIDERS: PCP Physician Assistant Medical; Visit Provider Physician Assistant Medical
DX: N63.11 Unspecified lump in the right breast, upper outer quadrant (principal)
CPT/HCPCS: 76642

== ENCOUNTER → 2025-09-08 13:30 | Outpatient (BNV) | payer OTHER, SELFPAY | PROVIDERS: PCP Physician Assistant Medical; Visit Provider Internal Medicine | DX: N63.11 Unspecified lump in the right breast, upper outer quadrant (principal); N64.4 Mastodynia | CPT/HCPCS: 76642 ==